=== PATIENT | female | born 1975 | race Caucasian/White ===

== ENCOUNTER 2016-05-23 17:01 | Emergency (ER) | payer SELFPAY ==
[~2016-05-23] VITALS: Ht 157.5 cm; Wt 66.0 kg
[~2016-05-23 17:01] MED LIST: CIPR250T2 PO; FLUC150T PO; LOMO2.5T PO; PARO1CAP PO
[2016-05-23 17:05] VITALS: BP 132/84; PULSE 84; RESP 18; TEMP 97.8; O2SAT 97
[2016-05-23] MEDS ORDERED: ONDANSETRON HCL 4 MG/2 ML VIAL IVP ONE (17:30)
[2016-05-23] MEDS ORDERED: SODIUM CHLOR 0.9% 1000 ML INJ 1,000 ML IV SCH (17:30)
[2016-05-23] MEDS ORDERED: SODIUM CHLORIDE 0.9% FLUSH 5 ML FLUSH IVF PRN (17:30)
[2016-05-23] MEDS ORDERED: SODIUM CHLOR 0.9% 1000 ML INJ 1,000 ML IV ONE (17:30)
--- NOTE | 2016-05-23 17:30 | PD ---
HPI Chief Complaint: GI Complaint Time Seen by Provider: 17:11 Travel History International Travel<30 days: No Contact w/Intl Traveler<30days: No Traveled to known affect area: No History of Present Illness HPI 40-year-old female came to the emergency room with history of vomiting and diarrhea that has been going on for past couple days. She feels quite dehydrated and that's why she came to the emergency room. He was at work today when she suddenly started getting palpitations and had to sit down. In the triage she started getting carpopedal spasms. Patient has history of rectal cancer but she is in remission. She says she frequently gets diarrhea. Vital signs were stable otherwise. [facility] Past Medical History Narrative Medical List of her past medical history is reviewed from the nursing note. Anemia: Yes Arthritis: Yes Asthma: Yes (seasonal asthma) Autoimmune Disease: Yes Blood Disorders: No Anxiety: Yes Depression: Yes Heart Rhythm Problems: No Cancer: Yes (colorectal, surgery 01/2015) Cardiovascular Problems: No High Cholesterol: No Chemotherapy: Yes (SEPTEMBER 2015) Chest Pain: No Congestive Heart Failure: No COPD: No Cerebrovascular Accident: Yes (TIA) Diabetes: No Diminished Hearing: No Endocrine: No Gastrointestinal Disorders: Yes (DIARRHEA, BLOOD IN STOOLS) Genetic Disorder: No Genitourinary: Yes (had "bladder stretched" when she was younger) Headaches: Yes (HEMIPLEGIA /MIGRANE) Hepatitis: Yes (HX HEPATITIS FROM ASPIRIN) Hiatal Hernia: No Hypertension: Yes (hx of, not currently on medications for HTN) Immune Disorder: Yes (RA) Implanted Vascular Access Dvce: No Musculoskeletal: Yes (Rheumatoid arthritis) Neurologic: Yes (TIA 2013) Parkinson's Disease: Yes Psychiatric: Yes Reproductive: No Respiratory: Yes (seasonal asthma) Immunizations Current: Yes Migraines: Yes Radiation Therapy: Yes (RECTAL CANCER) Sleep Apnea: No Thyroid Disease: No Menopausal: Yes : 2 Para: 1 Miscarriage: 1 : 0 Ectopic : Yes Ovarian Cysts: Yes Tubal Ligation: Yes Past Surgical History Abdominal Surgery: Yes (colon resection 01/2015) AICD: No Cardiac Surgery: No Cholecystectomy: Yes Ear Surgery: No Endocrine Surgery: No Eye Surgery: No Genitourinary Surgery: No Gynecologic Surgery: Yes (cyst removal right ovary) Joint Replacement: No Neurologic Surgery: No Oral Surgery: No Pacemaker: No Thoracic Surgery: No Other Surgery: Yes (TUMOR REMOVED LEFT FOOT) Social History Alcohol Use: No Tobacco Use: No Substance Use: No Allergies-Medications (Allergen,Severity, Reaction): Coded Allergies: Penicillin (Verified Allergy, Severe, ANAPHALXIS, 05/23/16) Septra (Verified Allergy, Severe, ITCHING, SWELLING LIPS & TONGUE, 05/23/16 ) Aspirin (Verified Adverse Reaction, Severe, SILICITIC HEPATITIS, 05/23/16) Codeine (Verified Adverse Reaction, Severe, NAUSEA, 05/23/16) Reglan (Verified Adverse Reaction, Severe, LOCKED JAW, 05/23/16) Compazine (Verified Adverse Reaction, Intermediate, 05/23/16) PT FEELS HEAVY AND HER SKIN IS CRAWLING Comments List of her allergies reviewed from the nursing note. Reported Meds & Prescriptions Reported Meds & Active Scripts Active Zofran Odt (Ondansetron Odt) 4 Mg Tab 4 Mg SL Q8HR PRN Reported Acyclovir 200 Mg Cap 200 Mg PO DAILY Lomotil (Diphenoxylate-Atropine) 2.5-0.025 Mg Tab 1 Tab PO TIDAC PRN Brisdelle (Paroxetine Mesylate) 7.5 Mg Cap 1 Tab PO HS Narrative Medication List of her home medications reviewed from the nursing note. Review of Systems Except as stated in HPI: all other systems reviewed are Neg Physical Exam Narrative GENERAL: Awake, alert, anxious, bilateral carpopedal spasms improving SKIN: Warm and dry. HEAD: Atraumatic. Normocephalic. EYES: Pupils equal and round. No scleral icterus. No injection or drainage. ENT: No nasal bleeding or discharge. Dry mucous membrane. NECK: Trachea midline. No JVD. CARDIOVASCULAR: Regular rate and rhythm. No murmur appreciated. RESPIRATORY: No accessory muscle use. Clear to auscultation. Breath sounds equal bilaterally. GASTROINTESTINAL: Abdomen soft, non-tender, nondistended. Hepatic and splenic margins not palpable. MUSCULOSKELETAL: No obvious deformities. No clubbing. No cyanosis. No edema. NEUROLOGICAL: Awake and alert. No obvious cranial nerve deficits. Motor grossly within normal limits. Normal speech. PSYCHIATRIC: Appropriate mood and affect; insight and judgment normal. Data Data Last Documented VS Vital Signs Date Time Temp Pulse Resp B/P Pulse Ox O2 Delivery O2 Flow Rate FiO2 05/23/16 20:14 74 16 127/72 99 05/23/16 19:15 Room Air 05/23/16 17:05 97.8 Orders Complete Blood Count With Diff (05/23/16 17:30) Comprehensive Metabolic Panel (05/23/16 17:30) Iv Access Insert/Monitor (05/23/16 17:30) Ecg Monitoring (05/23/16 17:30) Oximetry (05/23/16 17:30) Ondansetron Inj (Zofran Inj) (05/23/16 17:30) Sodium Chlor 0.9% 1000 Ml Inj (Ns 1000 M (05/23/16 17:30) Sodium Chloride 0.9% Flush (Ns Flush) (05/23/16 17:30) Magnesium (Mg) (05/23/16 17:30) Sodium Chlor 0.9% 1000 Ml Inj (Ns 1000 M (05/23/16 17:30) Alprazolam (Xanax) (05/23/16 18:30) Labs Laboratory Tests Test 05/23/16 17:20 White Blood Count 9.7 TH/MM3 Red Blood Count 4.68 MIL/MM3 Hemoglobin 13.4 GM/DL Hematocrit 39.6 % Mean Corpuscular Volume 84.6 FL Mean Corpuscular Hemoglobin 28.7 PG Mean Corpuscular Hemoglobin 33.9 % Concent Red Cell Distribution Width 13.4 % Platelet Count 362 TH/MM3 Mean Platelet Volume 7.4 FL Neutrophils (%) (Auto) 67.7 % Lymphocytes (%) (Auto) 20.0 % Monocytes (%) (Auto) 6.7 % Eosinophils (%) (Auto) 1.8 % Basophils (%) (Auto) 3.8 % Neutrophils # (Auto) 6.5 TH/MM3 Lymphocytes # (Auto) 1.9 TH/MM3 Monocytes # (Auto) 0.7 TH/MM3 Eosinophils # (Auto) 0.2 TH/MM3 Basophils # (Auto) 0.4 TH/MM3 CBC Comment DIFF FINAL Differential Comment Sodium Level 140 MEQ/L Potassium Level 3.8 MEQ/L Chloride Level 103 MEQ/L Carbon Dioxide Level 19.5 MEQ/L Anion Gap 18 MEQ/L Blood Urea Nitrogen 10 MG/DL Creatinine 0.87 MG/DL Estimat Glomerular Filtration 73 ML/MIN Rate Random Glucose 138 MG/DL Calcium Level 9.2 MG/DL Magnesium Level 2.0 MG/DL Total Bilirubin 0.5 MG/DL Aspartate Amino Transf 30 U/L (AST/SGOT) Alanine Aminotransferase 27 U/L (ALT/SGPT) Alkaline Phosphatase 127 U/L Total Protein 7.9 GM/DL Albumin 4.0 GM/DL MDM Medical Decision Making Medical Screen Exam Complete: Yes Emergency Medical Condition: Yes Medical Record Reviewed: Yes Differential Diagnosis Acute gastroenteritis, dehydration, electrolyte abnormalities Narrative Course 6:32 PM blood test results of back and within normal limits with a bicarbonate which is little low and could be from the dehydration. I have ordered 2 L of IV fluid. The nurse came to me just now and said that patient is complaining now of lower extremity weakness. She appears extremely anxious and I have ordered 0.5 mg of Xanax for her. I will reassess her in a bit but in my opinion she could be discharged home. 7:14 PM patient was reassessed and she says she feels better. She is finishing her second liter of IV fluid bolus. She will be discharged after that. Procedures EKG Prior to Arrival: No Diagnosis Primary Impression: Gastroenteritis Additional Impression: Dehydration Referrals: Primary Care Physician 2 days Additional Instructions: Please return to the ER if the condition worsens or any other new concerns. Otherwise follow-up with her primary care. Take the medication as per the prescription direction. Med/Other Pt SpecificInfo: Prescription(s) given Scripts Ondansetron Odt (Zofran Odt)4 Mg Tab4 Mg SL Q8HR PRN (Nausea/Vomiting) #10 TAB Ref 0 Prov:Sylvia Ramos MD 05/23/16 Disposition: 01 DISCHARGE HOME Condition: Stable Sylvia Ramos MD May 23, 2016 17:30
[2016-05-23] MEDS ORDERED: ACYC200C66 PO (17:33)
[2016-05-23 17:50] LABS: AUTOMATED NEUTROPHIL # 6.5 TH/MM3 (1.8-7.7); BASOPHIL # 0.4 TH/MM3 (0-0.2); BASOPHIL % 3.8 % (0.0-2.0); EOSINOPHIL # 0.2 TH/MM3 (0-0.4); EOSINOPHIL % 1.8 % (0.0-4.0); HEMATOCRIT 39.6 % (35.0-46.0); LYMPHOCYTE # 1.9 TH/MM3 (1.0-4.8); MEAN CELL VOLUME 84.6 FL (80.0-100.0); MEAN CORPUSCULAR HEMOGLOBIN 28.7 PG (27.0-34.0); MEAN CORPUSCULAR HGB CONC 33.9 % (32.0-36.0); MONO % 6.7 % (0.0-8.0); NEUT % 67.7 % (16.0-70.0); PLATELET COUNT 362 TH/MM3 (150-450); RED BLOOD COUNT 4.68 MIL/MM3 (4.00-5.30); RED CELL DISTRIBUTION WIDTH 13.4 % (11.6-17.2); WHITE BLOOD COUNT 9.7 TH/MM3 (4.0-11.0)
[2016-05-23 17:52] LABS: HEMO FLAGS DIFF FINAL
[2016-05-23 17:53] LABS: CHLORIDE 103 MEQ/L (98-107); POTASSIUM 3.8 MEQ/L (3.5-5.1); SODIUM (NA) 140 MEQ/L (136-145)
[2016-05-23 17:57] LABS: ANION GAP 18 MEQ/L (5-15); BICARBONATE 19.5 MEQ/L (21.0-32.0); BLOOD UREA NITROGEN 10 MG/DL (7-18)
[2016-05-23 18:00] LABS: ALT (GPT) 27 U/L (10-53); AST (GOT) 30 U/L (15-37); GLOMERULAR FILTRATION RATE 73 ML/MIN (>89)
[2016-05-23 18:02] LABS: TOTAL BILIRUBIN ADULT 0.5 MG/DL (0.2-1.0)
[2016-05-23 18:03] LABS: ALKALINE PHOSPHATASE 127 U/L (45-117)
[2016-05-23] MEDS ORDERED: ALPRAZolam 0.5 MG TAB PO ONE (18:30)
[2016-05-23 18:46] VITALS: BP 118/80; PULSE 90; RESP 20; O2SAT 97
[2016-05-23 18:47] VITALS: O2SAT 98
[2016-05-23 19:15] VITALS: BP 115/72; PULSE 78; RESP 16; O2SAT 99
[2016-05-23] MEDS ORDERED: ZOFR4TAB3 SL (19:15)
[2016-05-23 20:14] VITALS: BP 127/72
== END 2016-05-23 20:18 | disposition home or self-care (01) ==
LOC: PHED 17:01
DX: K52.9 Noninfective gastroenteritis and colitis, unspecified (principal); E86.0 Dehydration; Z85.048 Personal history of other malignant neoplasm of rectum, rectosigmoid junction, and anus
CPT/HCPCS: 80053; 83735; 85025; 96361; 96374; 99284; J2405; J7030

== ENCOUNTER 2016-06-28 11:14 | Emergency (ER) | payer SELFPAY ==
[~2016-06-28] VITALS: Ht 160 cm; Wt 66.0 kg
[~2016-06-28 11:14] MED LIST changes: +ACYC200C66 PO; -CIPR250T2 PO; -FLUC150T PO; +ZOFR4TAB3 SL
[2016-06-28 11:18] VITALS: BP 112/72; PULSE 121; RESP 18; TEMP 99.9; O2SAT 98
[2016-06-28 11:43] VITALS: O2SAT 98
--- NOTE | 2016-06-28 11:43 | PD ---
HPI Chief Complaint: Abdominal Pain Time Seen by Provider: 11:32 Travel History International Travel<30 days: No Contact w/Intl Traveler<30days: Yes Name of Country Traveled to: [place], [place] Traveled to known affect area: No History of Present Illness HPI The patient was seen and examined in the presence of the nurse. She complains of abdominal pain. Location is right lower quadrant. Duration is 24 hours. Severity is moderate. She also has nausea and vomiting. Patient has chronic diarrhea as she has history of rectal cancer and has had partial colectomy. No alleviating factors. She denies respiratory symptoms. Denies urinary symptoms. sHe reports subjective fever PFSH Past Medical History Anemia: Yes Arthritis: Yes Asthma: Yes (seasonal asthma) Autoimmune Disease: Yes Blood Disorders: No Anxiety: Yes Depression: Yes Heart Rhythm Problems: No Cancer: Yes (colorectal, surgery 01/2015) Cardiovascular Problems: No Chemotherapy: Yes (08/26) Chest Pain: No Congestive Heart Failure: No COPD: No Cerebrovascular Accident: Yes (TIA 2012) Diabetes: No Diminished Hearing: No Endocrine: No Gastrointestinal Disorders: Yes (DIARRHEA, BLOOD IN STOOLS) Genetic Disorder: No Genitourinary: Yes (had "bladder stretched" when she was younger) Headaches: Yes (HEMIPLEGIA /MIGRANE) Hepatitis: Yes (HX HEPATITIS FROM ASPIRIN) Hiatal Hernia: No Hypertension: Yes (hx of, not currently on medications for HTN) Immune Disorder: Yes (RA) Implanted Vascular Access Dvce: No Musculoskeletal: Yes (Rheumatoid arthritis) Neurologic: Yes (TIA 2013) Parkinson's Disease: Yes Psychiatric: Yes Reproductive: No Respiratory: Yes (seasonal asthma) Immunizations Current: Yes Migraines: Yes Radiation Therapy: Yes (RECTAL CANCER) Sleep Apnea: No Thyroid Disease: No Tetanus Vaccination: > 5 Years Influenza Vaccination: No ?: Not LMP: 10/2014 - CHEMO INDUCED MENOPAUSE Menopausal: Yes : 2 Para: 1 Miscarriage: 1 : 0 Ectopic : Yes Ovarian Cysts: Yes Tubal Ligation: Yes Past Surgical History Abdominal Surgery: Yes (colon resection 01/2015) AICD: No Cholecystectomy: Yes Gynecologic Surgery: Yes (cyst removal right ovary, [id number] SALPINGECTOMY) Joint Replacement: No Pacemaker: No Other Surgery: Yes (TUMOR REMOVED LEFT FOOT) Social History Alcohol Use: No Tobacco Use: No Substance Use: No Allergies-Medications (Allergen,Severity, Reaction): Coded Allergies: Penicillin (Verified Allergy, Severe, ANAPHALXIS, 06/28/16) Septra (Verified Allergy, Severe, ITCHING, SWELLING LIPS & TONGUE, 06/28/16 ) Aspirin (Verified Adverse Reaction, Severe, SILICITIC HEPATITIS, 06/28/16) Codeine (Verified Adverse Reaction, Severe, NAUSEA, 06/28/16) Reglan (Verified Adverse Reaction, Severe, LOCKED JAW, 06/28/16) Compazine (Verified Adverse Reaction, Intermediate, 06/28/16) PT FEELS HEAVY AND HER SKIN IS CRAWLING Reported Meds & Prescriptions Reported Meds & Active Scripts Active Reported Acyclovir 200 Mg Cap 200 Mg PO DAILY Lomotil (Diphenoxylate-Atropine) 2.5-0.025 Mg Tab 1 Tab PO TIDAC PRN Review of Systems General / Constitutional: Positive: Fever Eyes: No: Visual changes HENT: No: Headaches Cardiovascular: No: Chest Pain or Discomfort Respiratory: No: Shortness of Breath Gastrointestinal: Positive: Nausea, Vomiting, Abdominal Pain Genitourinary: No: Dysuria Musculoskeletal: No: Pain Skin: No Rash Neurologic: No: Weakness Psychiatric: No: Depression Endocrine: No: Polydipsia Hematologic/Lymphatic: No: Easy Bruising Physical Exam Narrative GENERAL: Well-nourished, well-developed patient with right lower quadrant pain. SKIN: Warm and dry. HEAD: Atraumatic. Normocephalic. EYES: Pupils equal and round. No scleral icterus. No injection or drainage. ENT: No nasal bleeding or discharge. Mucous membranes pink and moist. NECK: Trachea midline. No JVD. CARDIOVASCULAR: Regular rate and rhythm. No murmur appreciated. RESPIRATORY: No accessory muscle use. Clear to auscultation. Breath sounds equal bilaterally. GASTROINTESTINAL: Abdomen soft, is tender in both lower quadrants but more so on the right side. No rebound or guarding. Well-healed surgical scar. Hepatic and splenic margins not palpable. MUSCULOSKELETAL: No obvious deformities. No clubbing. No cyanosis. No edema. NEUROLOGICAL: Awake and alert. No obvious cranial nerve deficits. Motor grossly within normal limits. Normal speech. PSYCHIATRIC: Appropriate mood and affect; insight and judgment normal. Data Data Last Documented VS Vital Signs Date Time Temp Pulse Resp B/P Pulse Ox O2 Delivery O2 Flow Rate FiO2 06/28/16 13:40 94 16 130/77 100 Room Air 06/28/16 11:18 99.9 Orders Urinalysis - C+S If Indicated (06/28/16 11:18) Ed Urine Pregnancytest Poc (06/28/16 11:18) Basic Metabolic Panel (Bmp) (06/28/16 11:37) Complete Blood Count With Diff (06/28/16 11:37) Prothrombin Time / Inr (Pt) (06/28/16 11:37) Act Partial Throm Time (Ptt) (06/28/16 11:37) Ct Abd/Pel W Iv Contrast(Rout) (06/28/16 11:37) Iv Access Insert/Monitor (06/28/16 11:37) Ecg Monitoring (06/28/16 11:37) Oximetry (06/28/16 11:37) Sodium Chloride 0.9% Flush (Ns Flush) (06/28/16 11:45) Urine Culture (06/28/16 11:38) Iohexol 350 Inj (Omnipaque 350 Inj) (06/28/16 13:36) Ondansetron Inj (Zofran Inj) (06/28/16 14:30) Labs Laboratory Tests Test 06/28/16 06/28/16 11:38 11:52 Urine Collection Type CLEAN CATCH Urine Color YELLOW Urine Turbidity SLIGHT Urine pH 7.5 Urine Specific Shubert 1.021 Urine Protein TRACE mg/dL Urine Glucose (UA) NEG mg/dL Urine Ketones NEG mg/dL Urine Occult Blood TRACE Urine Nitrite NEG Urine Bilirubin NEG Urine Leukocyte Esterase SMALL Urine RBC 4-9 /hpf Urine WBC 9-14 /hpf Urine Squamous Epithelial > 8 /hpf Cells Urine Bacteria FEW /hpf Microscopic Urinalysis Comment CULTURE INDICATED Urine Collection Time 11:38 White Blood Count 14.4 TH/MM3 Red Blood Count 4.68 MIL/MM3 Hemoglobin 13.4 GM/DL Hematocrit 39.3 % Mean Corpuscular Volume 83.9 FL Mean Corpuscular Hemoglobin 28.6 PG Mean Corpuscular Hemoglobin 34.1 % Concent Red Cell Distribution Width 13.4 % Platelet Count 279 TH/MM3 Mean Platelet Volume 6.7 FL Neutrophils (%) (Auto) 87.9 % Lymphocytes (%) (Auto) 5.5 % Monocytes (%) (Auto) 4.5 % Eosinophils (%) (Auto) 0.4 % Basophils (%) (Auto) 1.7 % Neutrophils # (Auto) 12.7 TH/MM3 Lymphocytes # (Auto) 0.8 TH/MM3 Monocytes # (Auto) 0.6 TH/MM3 Eosinophils # (Auto) 0.1 TH/MM3 Basophils # (Auto) 0.2 TH/MM3 CBC Comment DIFF FINAL Differential Comment Prothrombin Time 10.9 SEC Prothromb Time International 1.0 RATIO Ratio Activated Partial 28.1 SEC Thromboplast Time Sodium Level 139 MEQ/L Potassium Level 4.0 MEQ/L Chloride Level 103 MEQ/L Carbon Dioxide Level 28.4 MEQ/L Anion Gap 8 MEQ/L Blood Urea Nitrogen 12 MG/DL Creatinine 0.90 MG/DL Estimat Glomerular Filtration 70 ML/MIN Rate Random Glucose 123 MG/DL Calcium Level 8.6 MG/DL [facility] Medical Decision Making Medical Screen Exam Complete: Yes Emergency Medical Condition: Yes Medical Record Reviewed: Yes Differential Diagnosis Appendicitis, colitis, ileus Narrative Course I have reviewed the patient's electronic medical record. IV placed CBC shows minimal nonspecific leukocytosis Metabolic profile is normal Coagulation studies are normal Urinalysis shows a few white cells but also an equal amount squamaus cell epithelial cells. It will be cultured but treatment will be held pending culture Urine is negative CT of abdomen and pelvis shows no emergent findings. It shows chronic stable postsurgical changes and mild constipation Gave her dose of IV Zofran Prescriptions written for pain and nausea medicine. No emergent intervention process found for hospitalization. I don't see any definite indication for antibiotics at this time Recommend primary care follow-up and return if worse Diagnosis Primary Impression: Abdominal pain, right lower quadrant Additional Impression: Nausea & vomiting Qualified Code: R11.2 - Non-intractable vomiting with nausea, unspecified vomiting type Additional Instructions: The patient was advised to follow up with their physician and return if they worsen. The patient was warned about potential sedation for the medications they will receive on prescription. Med/Other Pt SpecificInfo: Prescription(s) given Scripts Tramadol 50 Mg Tab50 Mg PO Q6H PRN (PAIN) #20 TAB Ref 0 Prov:Toni Liang MD 06/28/16 Ondansetron Odt (Zofran Odt)4 Mg Tab4 Mg SL Q6HR PRN (Nausea/Vomiting) #12 TAB Ref 0 Prov:Toni Liang MD 06/28/16 Disposition: 01 DISCHARGE HOME Condition: Stable Toni Liang MD Jun 28, 2016 11:43
[2016-06-28] MEDS ORDERED: SODIUM CHLORIDE 0.9% FLUSH 5 ML FLUSH IVF PRN (11:45)
[2016-06-28 11:49] LABS: BLOOD, URINE TRACE (NEG); GLUCOSE,URINE NEG (NEG); KETONE, URINE NEG (NEG); NITRITE,URINE NEG (NEG); PH, URINE 7.5 (5.0-8.5)
[2016-06-28 11:55] LABS: BACTERIA, URINE FEW /hpf; COMMENT (UR) CULTURE INDICATED; CULTURE IF INDICATED CULTURE INDICATED; METHOD OF COLLECTION CLEAN CATCH; SQUAMOUS EPITHELIAL CELL URINE > 8 /hpf (0-5); URINE COLOR YELLOW (YELLW/STRAW)
[2016-06-28 11:58] LABS: AUTOMATED NEUTROPHIL # 12.7 TH/MM3 (1.8-7.7); BASOPHIL # 0.2 TH/MM3 (0-0.2); BASOPHIL % 1.7 % (0.0-2.0); EOSINOPHIL # 0.1 TH/MM3 (0-0.4); EOSINOPHIL % 0.4 % (0.0-4.0); HEMATOCRIT 39.3 % (35.0-46.0); LYMPH % 5.5 % (9.0-44.0); LYMPHOCYTE # 0.8 TH/MM3 (1.0-4.8); MEAN CELL VOLUME 83.9 FL (80.0-100.0); MEAN CORPUSCULAR HEMOGLOBIN 28.6 PG (27.0-34.0); MEAN CORPUSCULAR HGB CONC 34.1 % (32.0-36.0); MONO % 4.5 % (0.0-8.0); NEUT % 87.9 % (16.0-70.0); PLATELET COUNT 279 TH/MM3 (150-450); RED BLOOD COUNT 4.68 MIL/MM3 (4.00-5.30); RED CELL DISTRIBUTION WIDTH 13.4 % (11.6-17.2); WHITE BLOOD COUNT 14.4 TH/MM3 (4.0-11.0)
[2016-06-28 11:59] LABS: HEMO FLAGS DIFF FINAL
[2016-06-28 12:09] LABS: BICARBONATE 28.4 MEQ/L (21.0-32.0)
[2016-06-28 12:10] LABS: APTT (PATIENT) 28.1 SEC (24.3-30.1); PROTHROMBIN TIME - PATIENT 10.9 SEC (9.8-11.6)
[2016-06-28 12:17] VITALS: BP 110/66; PULSE 100; RESP 16; O2SAT 100
[2016-06-28 12:55] VITALS: BP 133/69; PULSE 88; RESP 16; O2SAT 100
[2016-06-28] MEDS ORDERED: IOHEXOL 350 MG/ML 10 ML VIAL (for RAD DIAG) IV ONE (13:36)
[2016-06-28 13:40] VITALS: BP 130/77; PULSE 94; RESP 16; O2SAT 100
--- NOTE | 2016-06-28 13:53 | RADHPO ---
EXAM DATE/TIME: 06/28/2016 13:29 [facility] COMPARISON: CT ABDOMEN & PELVIS W CONTRAST, January 13, 2016, 2:09. INDICATIONS : Right lower quadrant pain. Nausea and vomiting. IV CONTRAST: 80 cc Omnipaque 350 (iohexol) IV ORAL CONTRAST: No oral contrast ingested. RADIATION DOSE: 7.56 CTDIvol (mGy) MEDICAL HISTORY : Carcinoma, rectal. Renal calculi. Hypertension.Asthma. SURGICAL HISTORY : Cholecystectomy. Tubal ligation.Partial colectomy. ENCOUNTER: Initial ACUITY: 1 day PAIN SCALE: 8/10 LOCATION: Right lower quadrant TECHNIQUE: Volumetric scanning of the abdomen and pelvis was performed. Using automated exposure control and ad justment of the mA and/or kV according to patient size, radiation dose was kept as low as reasonably achievable to obtain optimal diagnostic quality images. FINDINGS: Comparison is January 2016. Lung bases are clear. No acute bony abnormalities. There is a history of rectal carcinoma with a distal anastomosis of the rectal region. There is stabl e presacral postoperative soft tissue prominence. There is some stranding in the pelvic fat which is similar to prior study. No new inflammatory changes are seen in the pelvis. There is mild constipatio n, especially in the cecal region. No acute findings in the visualized liver, spleen, adrenals, kidneys or pancreas. There is previous c holecystectomy. CONCLUSION: 1. No acute findings compared with January 2016. Colonic anastomosis in the rectal region with stab le presacral soft tissue swelling and fat stranding in the pelvis. 2. Constipation, especially in the cecal region. Previous cholecystectomy. Daniel Fairchild MD on June 28, 2016 at 13:43 Board Certified Radiologist. This report was verified electronically.
[2016-06-28] MEDS ORDERED: TRAM50TA PO (14:23)
[2016-06-28] MEDS ORDERED: ZOFR4TAB3 SL (14:23)
[2016-06-28] MEDS ORDERED: ONDANSETRON HCL 4 MG/2 ML VIAL IVP ONE (14:30)
== END 2016-06-28 14:53 | disposition home or self-care (01) ==
LOC: PHED 11:14
DX: R10.31 Right lower quadrant pain (principal); G20 Parkinson's disease; M06.9 Rheumatoid arthritis, unspecified
CPT/HCPCS: 74177; 80048; 81001; 84703; 85025; 85610; 85730; 87086; 96374; 99284; J2405; Q9967

== ENCOUNTER 2016-07-15 21:06 | Emergency (ER) | payer SELFPAY ==
[~2016-07-15] VITALS: Ht 157.5 cm; Wt 66.6 kg
[~2016-07-15 21:06] MED LIST changes: -PARO1CAP PO; +TRAM50TA PO
[2016-07-15 21:11] VITALS: BP 116/70; PULSE 110; RESP 16; TEMP 98.7; O2SAT 94
[2016-07-15 21:19] VITALS: BP 116/70; PULSE 110; RESP 18; TEMP 98.7; O2SAT 94
--- NOTE | 2016-07-15 21:31 | PD ---
HPI Chief Complaint: Headache Time Seen by Provider: 21:22 Travel History International Travel<30 days: No Contact w/Intl Traveler<30days: No Traveled to known affect area: No History of Present Illness HPI The patient is a 40-year-old female that complains of a gradual onset headache getting worse in the last 2 days. The headache is left parietal and she has associated photophobia and phonophobia. She is taking tramadol for this and is not working very well. She has had similar headaches in the past. She is not and she denies any fever. She has had a tubal ligation. She denies any focal neurologic change. She has been vomiting several times today and feels dehydrated. PFSH Past Medical History Anemia: Yes Arthritis: Yes Asthma: Yes (seasonal asthma) Autoimmune Disease: Yes Blood Disorders: No Anxiety: Yes Depression: Yes Heart Rhythm Problems: No Cancer: Yes (colorectal, surgery 01/2015) Cardiovascular Problems: No Chemotherapy: Yes Chest Pain: No Congestive Heart Failure: No COPD: No Cerebrovascular Accident: Yes Diabetes: No Diminished Hearing: No Endocrine: No Gastrointestinal Disorders: Yes (DIARRHEA, BLOOD IN STOOLS) Genetic Disorder: No Genitourinary: Yes (had "bladder stretched" when she was younger) Headaches: Yes (HEMIPLEGIA /MIGRANE) Hepatitis: Yes (HX HEPATITIS FROM ASPIRIN) Hiatal Hernia: No Hypertension: Yes (hx of, not currently on medications for HTN) Immune Disorder: Yes (RA) Implanted Vascular Access Dvce: No Musculoskeletal: Yes (Rheumatoid arthritis) Neurologic: Yes (TIA 2013) Parkinson's Disease: Yes Psychiatric: Yes Reproductive: No Respiratory: Yes (seasonal asthma) Immunizations Current: Yes Migraines: Yes Radiation Therapy: Yes (RECTAL CANCER) Sleep Apnea: No Thyroid Disease: No Tetanus Vaccination: Unknown Influenza Vaccination: No ?: Not LMP: MENOPAUSE Menopausal: Yes : 2 Para: 1 Miscarriage: 1 : 0 Ectopic : Yes Ovarian Cysts: Yes Tubal Ligation: Yes Past Surgical History Abdominal Surgery: Yes (colon resection 01/2015) AICD: No Cholecystectomy: Yes Gynecologic Surgery: Yes (cyst removal right ovary, [id number] SALPINGECTOMY) Joint Replacement: No Pacemaker: No Other Surgery: Yes (TUMOR REMOVED LEFT FOOT) Social History Alcohol Use: No Tobacco Use: No Substance Use: No Allergies-Medications (Allergen,Severity, Reaction): Coded Allergies: Penicillin (Verified Allergy, Severe, ANAPHALXIS, 07/15/16) Septra (Verified Allergy, Severe, ITCHING, SWELLING LIPS & TONGUE, 07/15/16) Aspirin (Verified Adverse Reaction, Severe, SILICITIC HEPATITIS, 07/15/16) Codeine (Verified Adverse Reaction, Severe, NAUSEA, 07/15/16) Reglan (Verified Adverse Reaction, Severe, LOCKED JAW, 07/15/16) Compazine (Verified Adverse Reaction, Intermediate, 07/15/16) PT FEELS HEAVY AND HER SKIN IS CRAWLING Reported Meds & Prescriptions Reported Meds & Active Scripts Active Tramadol (Tramadol HCl) 50 Mg Tab 50 Mg PO Q6H PRN Zofran Odt (Ondansetron Odt) 4 Mg Tab 4 Mg SL Q6HR PRN Reported Acyclovir 200 Mg Cap 200 Mg PO DAILY Lomotil (Diphenoxylate-Atropine) 2.5-0.025 Mg Tab 1 Tab PO TIDAC PRN Review of Systems Except as stated in HPI: all other systems reviewed are Neg Physical Exam Narrative GENERAL: The patient is alert, oriented 3 in moderate apparent distress with her headache. SKIN: Warm and dry. HEAD: Atraumatic. Normocephalic. EYES: Pupils equal and round. No scleral icterus. No injection or drainage. ENT: No nasal bleeding or discharge. Mucous membranes pink and moist. NECK: Trachea midline. No JVD. There is no meningismus and the patient can touch her chin to her chest without any hesitation. CARDIOVASCULAR: Regular rate and rhythm. No murmur appreciated. RESPIRATORY: No accessory muscle use. Clear to auscultation. Breath sounds equal bilaterally. GASTROINTESTINAL: Abdomen soft, non-tender, nondistended. Hepatic and splenic margins not palpable. No guarding or rebound is present. MUSCULOSKELETAL: No obvious deformities. No clubbing. No cyanosis. No edema. NEUROLOGICAL: Awake and alert. No obvious cranial nerve deficits. Motor grossly within normal limits. Normal speech. PSYCHIATRIC: Appropriate mood and affect; insight and judgment normal. Data Data Last Documented VS Vital Signs Date Time Temp Pulse Resp B/P Pulse Ox O2 Delivery O2 Flow Rate FiO2 07/15/16 22:18 86 18 119/81 97 Room Air 07/15/16 21:19 98.7 Orders Sumatriptan Inj (Imitrex Inj) (07/15/16 21:45) Complete Blood Count With Diff (07/15/16 21:32) Basic Metabolic Panel (Bmp) (07/15/16 21:32) Ecg Monitoring (07/15/16 21:32) Iv Access Insert/Monitor (07/15/16 21:32) Oximetry (07/15/16 21:32) Sodium Chloride 0.9% Flush (Ns Flush) (07/15/16 21:45) Ketorolac Inj (Toradol Inj) (07/15/16 21:45) Diphenhydramine Inj (Benadryl Inj) (07/15/16 21:45) Sodium Chlor 0.9% 1000 Ml Inj (Ns 1000 M (07/15/16 21:32) Ondansetron Inj (Zofran Inj) (07/15/16 21:45) Hydromorphone Pf Inj (Dilaudid Pf Inj) (07/15/16 21:45) MDM Medical Decision Making Medical Screen Exam Complete: Yes Emergency Medical Condition: Yes Medical Record Reviewed: Yes Differential Diagnosis Migraine headache, cluster headache, tension/migraine combination headache, tension headache, normal pressure hydrocephalusunlikely, subarachnoid hemorrhageextremely unlikely Narrative Course It is now 1019 and the patient feels much better. She was sleeping when I came into her room. The Imitrex did work for her headache. She states she has plenty of Zofran at home. I will write her Fioricet to see if this helps some of her milder headaches. Impression: Migraine headache. The patient's history plus the fact that Imitrex worked for her strongly suggest migraine. Diagnosis Primary Impression: Migraine headache Additional Instructions: Do not drink alcohol or drive on the Fioricet because it can make sleepy. The Fioricet as intended for the minor headaches, use early on with your headache. Follow-up with your primary care physician this week. Med/Other Pt SpecificInfo: Prescription(s) given Scripts [id number] (Fioricet)50-300-40 Mg Cap1 Cap PO Q4H PRN ( HEADACHE) #30 CAP Ref 0 Prov:Familia Romero MD 07/15/16 Disposition: 01 DISCHARGE HOME Condition: Stable Familia Romero MD Jul 15, 2016 21:31
[2016-07-15] MEDS ORDERED: SODIUM CHLOR 0.9% 1000 ML INJ 1,000 ML IV ONE (21:32)
[2016-07-15 21:37] VITALS: RESP 18; O2SAT 94
[2016-07-15] MEDS ORDERED: SUMAtriptan INJ 6 MG/0.5 ML VIAL SQ ONE (21:45)
[2016-07-15] MEDS ORDERED: SODIUM CHLORIDE 0.9% FLUSH 5 ML FLUSH IVF PRN (21:45)
[2016-07-15] MEDS ORDERED: diphenhydrAMINE HCL 50 MG/ML VIAL IVP ONE (21:45)
[2016-07-15] MEDS ORDERED: ONDANSETRON HCL 4 MG/2 ML VIAL IV ONE (21:45)
[2016-07-15] MEDS ORDERED: HYDROmorphone HCL PF 1 MG/ML VIAL IVP ONE (21:45)
[2016-07-15] MEDS ORDERED: KETOROLAC TROMETHAMINE 30 MG/ML (IVP) VIAL IVP ONE (21:45)
[2016-07-15 22:18] VITALS: BP 119/81; PULSE 86; RESP 18; O2SAT 97
[2016-07-15 22:20] LABS: AUTOMATED NEUTROPHIL # 7.4 TH/MM3 (1.8-7.7); BASOPHIL # 0.1 TH/MM3 (0-0.2); BASOPHIL % 1.2 % (0.0-2.0); EOSINOPHIL # 0.1 TH/MM3 (0-0.4); HEMATOCRIT 37.4 % (35.0-46.0); LYMPHOCYTE # 1.3 TH/MM3 (1.0-4.8); MEAN CELL VOLUME 84.4 FL (80.0-100.0); MEAN CORPUSCULAR HEMOGLOBIN 27.8 PG (27.0-34.0); MONO % 7.8 % (0.0-8.0); PLATELET COUNT 317 TH/MM3 (150-450); RED BLOOD COUNT 4.43 MIL/MM3 (4.00-5.30); RED CELL DISTRIBUTION WIDTH 13.3 % (11.6-17.2); WHITE BLOOD COUNT 9.7 TH/MM3 (4.0-11.0)
[2016-07-15] MEDS ORDERED: BUTA1CAP PO (22:21)
[2016-07-15 22:22] LABS: HEMO FLAGS DIFF FINAL
[2016-07-15 22:36] VITALS: RESP 18
[2016-07-15 22:37] LABS: POTASSIUM 3.5 MEQ/L (3.5-5.1)
[2016-07-15 22:40] LABS: BICARBONATE 27.1 MEQ/L (21.0-32.0)
[2016-07-15 23:35] VITALS: BP 108/67
[2016-11-09] MEDS ORDERED: VENL75CA44 PO (16:20)
[2016-11-09] MEDS ORDERED: ALBU0.08 NEB (16:23)
== END 2016-07-15 23:39 | disposition home or self-care (01) ==
LOC: PHED 21:06
DX: G43.909 Migraine, unspecified, not intractable, without status migrainosus (principal); H53.149 Visual discomfort, unspecified; I10 Essential (primary) hypertension; J45.909 Unspecified asthma, uncomplicated
CPT/HCPCS: 80048; 85025; 96361; 96372; 96374; 96375; 99283; J1170; J1200; J1885; J2405; J3030; J7030

== ENCOUNTER → 2016-10-30 | Outpatient (CLI) | payer OTHER ==
[~2016-10-30] MED LIST changes: +BUTA1CAP PO
== END ==
LOC: PLAB 11:12
PROVIDERS: ATTEND Family Medicine
DX: C18.9 Malignant neoplasm of colon, unspecified (principal); R63.4 Abnormal weight loss; K92.1 Melena
CPT/HCPCS: 84443

== ENCOUNTER → 2016-11-14 | Outpatient (CLI) | payer OTHER ==
[~2016-11-14] VITALS: Ht 160 cm; Wt 54.2 kg
[~2016-11-14] MED LIST changes: +ALBU0.08 NEB; +CHLORHEXIDINE GLUCONATE 2 % 1 PACK (2 CLOTHS) TOPICAL PRN; +DEXTROSE 5% IN WATE 1000ML INJ 1,000 ML IV SCH; +INSULIN HUMAN REGULAR 1,000 UNITS/10 ML VIAL SQ PRN; +LACTATED RINGER'S 1000 ML INJ 1,000 ML ONE; +LACTATED RINGER'S 1000 ML IV PRN; +METOPROLOL TARTRATE 25 MG TAB PO PRN; +POVIDONE IODINE 5% (ANTISEPSIS KIT) 4 APPLICATIONS EACH NARE PRN; +PROPOFOL 200 MG/20 ML AMP IV ONE; +SODIUM CHLORID 0.9% 500 ML IV PRN; -TRAM50TA PO; +VENL75CA44 PO
[2016-11-14 10:43] VITALS: BP 122/74; PULSE 82; RESP 16; TEMP 98.7; O2SAT 98
[2016-11-14 12:37] VITALS: TEMP 98.1
--- NOTE | 2016-11-14 12:38 | PD.HP.UP ---
H&P Update Note The Pre-Admit History and Physical Examination regarding the above named patient was reviewed (including, but not limited to, vital signs, heart, lungs, co-morbid conditions), and upon re-examination it is noted that: the patient's condition has not significantly changed since the last examination. Inder Ellis MD Nov 14, 2016 12:38
[2016-11-14 12:57] VITALS: BP 131/80; PULSE 86; RESP 18; O2SAT 98
--- NOTE | 2016-11-15 12:53 | MR ---
cc: JESSICA MARSHALL M.D., ANDREW H. M.D. DATE OF SURGERY November 14, 2016 PREOPERATIVE DIAGNOSES History of rectal cancer. Change in bowel habits. Colon cancer screening. PROCEDURE Colonoscopy to cecum. POSTOPERATIVE DIAGNOSES 1. Normal cecum to ileocecal valve. 2. Minor inflammatory changes of the colorectal anastomosis consistent with radiation proctitis. 3. History of rectal cancer. SURGEON Dr. Ellis PROCEDURE The patient was placed in the left lateral decubitus position. After adequate anesthesia sedation, rectal exam confirmed the emptiness of the rectal vault. The Olympus colonoscope was then introduced into the rectum, advanced easily under direct vision through the proximal colon until the cecum was identified. The ileocecal valve was normal. There were no vascular abnormalities noted in the cecum. The colonoscope was then gradually withdrawn visualizing mucosal surface throughout the distal colon. No polyps were seen. No luminal narrowing was noted in the region of the previous colorectal anastomosis. There was some minor granularity and inflammatory changes consistent with radiation effect. The anastomosis was somewhat narrowed but more than adequate in lumen size with bowel relaxation. The distal rectal vault appeared pretty unremarkable. The patient tolerated the procedure quite well and was brought to the recovery room in stable condition. MD MICHAEL Pineda/ELANA /10:34 PM /12:50 PM
== END ==
LOC: HEND 10:04
PROVIDERS: ATTEND Colon & Rectal Surgery
DX: R19.7 Diarrhea, unspecified (principal); Z85.048 Personal history of other malignant neoplasm of rectum, rectosigmoid junction, and anus; K62.7 Radiation proctitis
CPT/HCPCS: 00810; 45378; J7120

== ENCOUNTER 2016-11-24 20:44 | Emergency (ER) | payer OTHER ==
[~2016-11-24] VITALS: Ht 157.5 cm; Wt 56.0 kg
[~2016-11-24 20:44] MED LIST changes: -CHLORHEXIDINE GLUCONATE 2 % 1 PACK (2 CLOTHS) TOPICAL PRN; -DEXTROSE 5% IN WATE 1000ML INJ 1,000 ML IV SCH; -INSULIN HUMAN REGULAR 1,000 UNITS/10 ML VIAL SQ PRN; -LACTATED RINGER'S 1000 ML INJ 1,000 ML ONE; -LACTATED RINGER'S 1000 ML IV PRN; -METOPROLOL TARTRATE 25 MG TAB PO PRN; -POVIDONE IODINE 5% (ANTISEPSIS KIT) 4 APPLICATIONS EACH NARE PRN; -PROPOFOL 200 MG/20 ML AMP IV ONE; -SODIUM CHLORID 0.9% 500 ML IV PRN
[2016-11-24 20:48] VITALS: BP 119/86; TEMP 98.9
--- NOTE | 2016-11-24 21:10 | PD ---
HPI . Headache Chief Complaint: Headache Time Seen by Provider: 21:00 Travel History International Travel<30 days: No Contact w/Intl Traveler<30days: No Traveled to known affect area: No History of Present Illness HPI This patient presents with a chief complaint of headache. She describes a global headache which feels like a stabbing pain. It is exacerbated by light and sound. It is associated with nausea. It has been unrelieved by Tylenol and tramadol. She states that she has a prescription for tramadol because of headaches. Pain is currently rated 10/10. PFSH Past Medical History Anemia: Yes Arthritis: Yes Asthma: Yes (seasonal asthma) Autoimmune Disease: Yes Blood Disorders: No Anxiety: Yes Depression: Yes Heart Rhythm Problems: No Cancer: Yes (colorectal, surgery 01/2015) Cardiovascular Problems: No Chemotherapy: Yes Chest Pain: No Congestive Heart Failure: No COPD: No Cerebrovascular Accident: Yes Diabetes: No Diminished Hearing: No Endocrine: No Gastrointestinal Disorders: Yes (DIARRHEA, BLOOD IN STOOLS) Genetic Disorder: No Genitourinary: Yes (had "bladder stretched" when she was younger, herpes) Headaches: Yes (HEMIPLEGIA /MIGRANE) Hepatitis: Yes (HX HEPATITIS FROM ASPIRIN) Hiatal Hernia: No Hypertension: Yes (hx of, not currently on medications for HTN) Immune Disorder: Yes (RA) Implanted Vascular Access Dvce: No Musculoskeletal: Yes (Rheumatoid arthritis) Neurologic: Yes (TIA 2013, paraplegic migraines) Parkinson's Disease: Yes Psychiatric: Yes (depression) Reproductive: No Respiratory: Yes (seasonal asthma) Immunizations Current: Yes Migraines: Yes Radiation Therapy: Yes (RECTAL CANCER) Sleep Apnea: No Thyroid Disease: No LMP: , RECTAL CANCER NOVEMBER 2014 Menopausal: Yes : 2 Para: 1 Miscarriage: 1 : 0 Ectopic : Yes Ovarian Cysts: Yes Tubal Ligation: Yes Past Surgical History Abdominal Surgery: Yes (colon resection 01/2015, cholecystectomy) AICD: No Cardiac Surgery: No Cholecystectomy: Yes Ear Surgery: No Endocrine Surgery: No Eye Surgery: No Gynecologic Surgery: Yes (cyst removal right ovary, BILATERAL SALPINGECTOMY) Joint Replacement: No Oral Surgery: No Pacemaker: No Thoracic Surgery: No Other Surgery: Yes (TUMOR REMOVED LEFT FOOT) Social History Alcohol Use: No Tobacco Use: No Substance Use: No Allergies-Medications (Allergen,Severity, Reaction): Coded Allergies: Penicillin (Verified Allergy, Severe, ANAPHALXIS, 11/24/16) Septra (Verified Allergy, Severe, ITCHING, SWELLING LIPS & TONGUE, 11/24/16 ) Aspirin (Verified Adverse Reaction, Severe, SILICITIC HEPATITIS, 11/24/16) Codeine (Verified Adverse Reaction, Severe, NAUSEA, 11/24/16) Reglan (Verified Adverse Reaction, Severe, LOCKED JAW, 11/24/16) Compazine (Verified Adverse Reaction, Intermediate, 11/24/16) PT FEELS HEAVY AND HER SKIN IS CRAWLING Reported Meds & Prescriptions Reported Meds & Active Scripts Active Zofran Odt (Ondansetron Odt) 4 Mg Tab 4 Mg SL Q6HR PRN Reported Albuterol Neb (Albuterol Sulfate) 2.5 Mg/3 Ml Neb 2.5 Mg NEB TID NEB PRN Venlafaxine ER 24 HR (Venlafaxine HCl) 75 Mg Cap 75 Mg PO DAILY Acyclovir 200 Mg Cap 200 Mg PO DAILY Lomotil (Diphenoxylate-Atropine) 2.5-0.025 Mg Tab 1 Tab PO TIDAC PRN Review of Systems Except as stated in HPI: all other systems reviewed are Neg Eyes: Positive: Photophobia, No: Blurred Vision HENT: Positive: Headaches Gastrointestinal: Positive: Nausea Physical Exam Narrative GENERAL: Awake and alert and in no acute distress. SKIN: Warm and dry. HEAD: Atraumatic. Normocephalic. Positive scalp tenderness. EYES: Pupils equal and round. Extraocular movements are intact. NECK: Trachea midline. Neck is supple. CARDIOVASCULAR: Regular rate and rhythm. RESPIRATORY: No accessory muscle use. MUSCULOSKELETAL: No obvious deformities. No edema. NEUROLOGICAL: Awake and alert. No obvious cranial nerve deficits. Motor grossly within normal limits. Normal speech. Vvjmcd-[id number] exam is intact. PSYCHIATRIC: Appropriate mood and affect; insight and judgment normal. Data Data Last Documented VS Vital Signs Date Time Temp Pulse Resp B/P Pulse Ox O2 Delivery O2 Flow Rate FiO2 11/24/16 21:14 99 Room Air 11/24/16 20:48 98.9 100 14 119/86 Orders Haloperidol Inj (Haldol Inj) (11/24/16 21:15) Diphenhydramine Inj (Benadryl Inj) (11/24/16 21:15) MDM Medical Decision Making Medical Screen Exam Complete: Yes Emergency Medical Condition: Yes Medical Record Reviewed: Yes (this patient does have a history of headaches. She also has a history of colon cancer.) Differential Diagnosis Differential diagnosis of headache includes but is not limited to migraine, muscle contraction headache, brain tumor, brain bleed Narrative Course This patient presents with the chief complaint of headache. She reports allergies to Compazine, Reglan and codeine. Therefore, I have ordered Haldol and Benadryl. This patient is now sound sleep. She'll be discharged home. Diagnosis Primary Impression: Migraine headache Qualified Code: G43.909 - Migraine without status migrainosus, not intractable , unspecified migraine type Patient Instructions: Acute Headache (DC), General Instructions Disposition: 01 DISCHARGE HOME Condition: Stable Mary Seals MD Nov 24, 2016 21:09
[2016-11-24] MEDS ORDERED: diphenhydrAMINE HCL 50 MG/ML VIAL IM ONE (21:15)
[2016-11-24] MEDS ORDERED: HALOPERIDOL LACTATE 5 MG/ML AMP IM ONE (21:15)
[2016-11-24 22:19] VITALS: BP 147/72
== END 2016-11-24 22:22 | disposition home or self-care (01) ==
LOC: PHED 20:44
DX: G43.909 Migraine, unspecified, not intractable, without status migrainosus (principal)
CPT/HCPCS: 96372; 99284; J1200; J1630

== ENCOUNTER 2017-02-26 07:18 | Emergency (ER) | payer SELFPAY ==
[~2017-02-26] VITALS: Ht 160 cm; Wt 63.9 kg
[~2017-02-26 07:18] MED LIST changes: -BUTA1CAP PO
[2017-02-26 07:25] VITALS: BP 140/86; PULSE 100; RESP 20; TEMP 98.6; O2SAT 100
[2017-02-26] MEDS ORDERED: SODIUM CHLOR 0.9% 1000 ML INJ 1,000 ML IV ONE (07:38)
[2017-02-26 07:41] VITALS: O2SAT 100
--- NOTE | 2017-02-26 07:57 | PD ---
HPI Chief Complaint: Cardiac Complaint Time Seen by Provider: 07:38 Travel History International Travel<30 days: No Contact w/Intl Traveler<30days: No Traveled to known affect area: No History of Present Illness HPI 41-year-old female patient with history of migraine headaches, previous TIA, colon cancer status post full treatment with hemicolectomy and chemotherapy a year ago, presents to the ER today because she apparently was visiting her mother who is giving surgery this morning, started not feeling well, dizzy, room spinning, tingling on the left face, arm, and leg. She states that she is now having trouble lifting up her leg and arm, states it feels very heavy. She states that it feels similar to the last time she had a TIA except that at that time she could not speak as well. She states that she had some dizziness, with nausea and spinning last evening but it went away. She states that it started again this morning while she was visiting with her mom upstairs about half an hour prior to arrival. Modifying Factors: None Associated Signs & Symptoms: Nausea, dizziness, left-sided paresthesias, left- sided weakness Risk Factors: Previous TIA PFSH Past Medical History Anemia: Yes Arthritis: Yes Asthma: Yes (seasonal asthma) Autoimmune Disease: Yes Blood Disorders: No Anxiety: Yes Depression: Yes Heart Rhythm Problems: No Cancer: Yes (colorectal, surgery 01/2015) Cardiovascular Problems: No Chemotherapy: Yes Chest Pain: No Congestive Heart Failure: No COPD: No Cerebrovascular Accident: Yes Diabetes: No Diminished Hearing: No Endocrine: No Gastrointestinal Disorders: Yes Genetic Disorder: No Genitourinary: Yes (had "bladder stretched" when she was younger, herpes) Headaches: Yes (HEMIPLEGIA /MIGRANE) Hepatitis: Yes (HX HEPATITIS FROM ASPIRIN) Hiatal Hernia: No Hypertension: Yes (hx of, not currently on medications for HTN) Immune Disorder: Yes (RA) Implanted Vascular Access Dvce: No Musculoskeletal: Yes (Rheumatoid arthritis) Neurologic: Yes (TIA 2013, paraplegic migraines) Parkinson's Disease: Yes Psychiatric: Yes (depression) Reproductive: No Respiratory: Yes (seasonal asthma) Immunizations Current: Yes Migraines: Yes Radiation Therapy: Yes (RECTAL CANCER) Sleep Apnea: No Thyroid Disease: No Tetanus Vaccination: > 5 Years ?: Not Menopausal: Yes : 2 Para: 1 Miscarriage: 1 : 0 Ectopic : Yes Ovarian Cysts: Yes Tubal Ligation: Yes Past Surgical History Abdominal Surgery: Yes (colon resection 01/2015, cholecystectomy) AICD: No Cardiac Surgery: No Cholecystectomy: Yes Ear Surgery: No Endocrine Surgery: No Eye Surgery: No Gynecologic Surgery: Yes (cyst removal right ovary, BILATERAL SALPINGECTOMY) Joint Replacement: No Oral Surgery: No Pacemaker: No Thoracic Surgery: No Other Surgery: Yes (TUMOR REMOVED LEFT FOOT) Social History Alcohol Use: No Tobacco Use: No Substance Use: No Allergies-Medications (Allergen,Severity, Reaction): Coded Allergies: penicillin G (Unverified Allergy, Severe, ANAPHALXIS, 02/26/17) sulfamethoxazole (Unverified Allergy, Severe, ITCHING, SWELLING LIPS & TONGUE, 02/26/17) trimethoprim (Unverified Allergy, Severe, ITCHING, SWELLING LIPS & TONGUE , 02/26/17) aspirin (Unverified Adverse Reaction, Severe, SILICITIC HEPATITIS, ) codeine (Unverified Adverse Reaction, Severe, NAUSEA, 02/26/17) metoclopramide (Unverified Adverse Reaction, Severe, LOCKED JAW, 02/26/17) prochlorperazine (Unverified Adverse Reaction, Intermediate, 02/26/17) PT FEELS HEAVY AND HER SKIN IS CRAWLING Reported Meds & Prescriptions Reported Meds & Active Scripts Active No Active Prescriptions or Reported Medications Review of Systems Except as stated in HPI: all other systems reviewed are Neg Physical Exam Narrative GENERAL: Well-developed middle age white female patient currently in moderate distress. Awake and oriented 3. Appears fairly anxious. SKIN: Focused skin assessment warm/dry. HEAD: Atraumatic. Normocephalic. EYES: Pupils equal and round. No scleral icterus. No injection or drainage. ENT: No nasal bleeding or discharge. Mucous membranes pink and moist. NECK: Trachea midline. No JVD. CARDIOVASCULAR: Regular rate and rhythm. No murmur appreciated. RESPIRATORY: No accessory muscle use. Clear to auscultation. Breath sounds equal bilaterally. GASTROINTESTINAL: Abdomen soft, non-tender, nondistended. Hepatic and splenic margins not palpable. MUSCULOSKELETAL: No obvious deformities. No clubbing. No cyanosis. No edema. NEUROLOGICAL: Awake and alert. No obvious cranial nerve deficits. Left arm paresthesias and left leg paresthesias, left wrist drop, unable to lift the left leg off the bed. Stuttering speech. PSYCHIATRIC: Anxious mood and affect; insight and judgment normal. Data Data Last Documented VS Vital Signs Date Time Temp Pulse Resp B/P (MAP) Pulse Ox O2 Delivery O2 Flow Rate FiO2 02/26/17 07:41 Nasal Cannula 2.00 02/26/17 07:41 100 02/26/17 07:25 98.6 100 20 140/86 (104) Orders Orders Diet Npo (02/26/17 Breakfast) Activity Bed Rest (02/26/17 ) Electrocardiogram (02/26/17 ) I-Stat Creatinine (02/26/17 07:38) I-Stat Profile (02/26/17 07:38) Prothrombin Time / Inr (Pt) (02/26/17 07:38) Act Partial Throm Time (Ptt) (02/26/17 07:38) Complete Blood Count With Diff (02/26/17 07:38) Fibrinogen (02/26/17 07:38) Creatine Kinase (Cpk) (02/26/17 07:38) Troponin I (02/26/17 07:38) Ua Includes Microscopic (02/26/17 07:38) Drug Screen, Random Urine (02/26/17 07:38) Type And Screen (02/26/17 07:38) Ct Brain W/O Iv Contrast(Rout) (02/26/17 ) Consult Neurology (02/26/17 ) Blood Glucose (02/26/17 07:38) Ecg Monitoring (02/26/17 07:38) Neuro Checks Q2HX12,Q4H (02/26/17 07:38) Nursing Bedside Swallow Assess .ONCE (02/26/17 07:38) Iv Access Insert/Monitor (02/26/17 07:38) NPO (02/26/17 07:38) Oximetry (02/26/17 07:38) Oxygen Administration (02/26/17 07:38) Sodium Chlor 0.9% 1000 Ml Inj (Ns 1000 M (02/26/17 07:38) Resp Oxygen Corby C Titrat 1-4 L (02/26/17 07:38) Cath For Specimen (02/26/17 07:38) Beta Hcg (Quant/Titer) (02/26/17 07:38) Cta Brain W Iv Contrast W 3d (02/26/17 07:47) Cta Neck W Iv Contrast W 3d (02/26/17 07:47) Iodixanol 320 Inj (Rad Ct) (Visipaque 32 (02/26/17 08:07) Lorazepam Inj (Ativan Inj) (02/26/17 08:30) (Hub Use Only)Inp Phy Cons/Ref (02/26/17 ) CKMB (02/26/17 07:20) CKMB% (02/26/17 07:20) Labs Laboratory Tests Test 02/26/17 07:20 02/26/17 08:20 White Blood Count 6.7 TH/MM3 Red Blood Count 4.70 MIL/MM3 Hemoglobin 13.5 GM/DL Bedside Hemoglobin 13.9 G/DL Hematocrit 40.7 % Bedside Hematocrit 41.0 % Mean Corpuscular Volume 86.5 FL Mean Corpuscular Hemoglobin 28.7 PG Mean Corpuscular Hemoglobin Concent 33.2 % Red Cell Distribution Width 14.6 % Platelet Count 333 TH/MM3 Mean Platelet Volume 7.0 FL Neutrophils (%) (Auto) 62.1 % Lymphocytes (%) (Auto) 23.4 % Monocytes (%) (Auto) 9.6 % Eosinophils (%) (Auto) 2.9 % Basophils (%) (Auto) 2.0 % Neutrophils # (Auto) 4.1 TH/MM3 Lymphocytes # (Auto) 1.6 TH/MM3 Monocytes # (Auto) 0.6 TH/MM3 Eosinophils # (Auto) 0.2 TH/MM3 Basophils # (Auto) 0.1 TH/MM3 CBC Comment DIFF FINAL Differential Comment Prothrombin Time 10.3 SEC Prothromb Time International Ratio 0.9 RATIO Activated Partial Thromboplast Time 27.0 SEC Fibrinogen 321 mg/dL Bedside Sodium 140 MMOL/L Bedside Potassium 4.5 MMOL/L Bedside Chloride 105 MMOL/L Bedside Blood Urea Nitrogen 24 MG/DL Bedside Creatinine 0.9 MG/DL Bedside Glucose 94 MG/DL Total Creatine Kinase 850 U/L Creatine Kinase MB 5.5 NG/ML Creatine Kinase MB % 0.6 % Troponin I LESS THAN 0.02 NG/ML Human Chorionic Gonadotropin, Quant 2 MIU/ML Urine Color LIGHT-YELLOW Urine Turbidity CLEAR Urine pH 8.0 Urine Specific Harvey 1.012 Urine Protein NEG mg/dL Urine Glucose (UA) NEG mg/dL Urine Ketones NEG mg/dL Urine Occult Blood NEG Urine Nitrite NEG Urine Bilirubin NEG Urine Urobilinogen LESS THAN 2.0 MG/DL Urine Leukocyte Esterase SMALL Urine RBC 1 /hpf Urine WBC 2 /hpf Urine Squamous Epithelial Cells 1 /hpf Urine Opiates Screen NEG Urine Barbiturates Screen NEG Urine Amphetamines Screen NEG Urine Benzodiazepines Screen NEG Urine Cocaine Screen NEG Urine Cannabinoids Screen NEG MDM Medical Screen Exam Complete: Yes Emergency Medical Condition: Yes Medical Record Reviewed: Yes Differential Diagnosis TIA/CVA versus brain metastases versus anxiety attack versus atypical migraine versus orthostasis versus metabolic issues versus dysrhythmias Narrative Course CAT scans and CTA were unremarkable. Patient had been seen by , reviewed the patient's chart, patient's exam, and notes that she has long history of atypical migraine headaches, hemiplegic migraines, and notes that she is having very similar symptoms, feels that this is not likely a stroke but rather a hemiplegic migraine or basilar migraine. He recommends that if CT and CTA are negative, patient can be released with follow-up as an outpatient. Return for any new issues as needed. The plan has been discussed with the patient and and she states understanding. Stroke Alert NIHSS NIH Stroke Scale Result: 1 NIHSS Time Completed: 07:30 Thrombolytic Contraindications Contraindications Comment: Patient with previous symptoms, diagnosed with atypical migraine, seen by multiple neurologists in the past Diagnosis Diagnosis: Primary Impression: Hemiplegic migraine Scripts No Active Prescriptions or Reported Meds Disposition: 01 DISCHARGE HOME Condition: Stable Jerri Miller MD Feb 26, 2017 07:57
--- NOTE | 2017-02-26 07:58 | RADRPT ---
EXAM DATE/TIME: 02/26/2017 07:39 [facility] COMPARISON: CT BRAIN W/O CONTRAST, March 07, 2015, 9:26. INDICATIONS : Stroke alert, left side tingling. RADIATION DOSE: 56.35 CTDIvol (mGy) This report was called by Dr. Rodriguez to Dr. Miller at 0756 MEDICAL HISTORY : Non-responsive. SURGICAL HISTORY : Non-responsive. ENCOUNTER: Initial ACUITY: 1 day PAIN SCALE: Non-responsive LOCATION: cranial TECHNIQUE: Multiple contiguous axial images were obtained of the head. Using automated exposure control and adj ustment of the mA and/or kV according to patient size, radiation dose was kept as low as reasonably a chievable to obtain optimal diagnostic quality images. DICOM format image data is available electro nically for review and comparison. FINDINGS: CEREBRUM: The ventricles are normal for age. No evidence of midline shift, mass lesion, hemorrhage or acute in farction. No extra-axial fluid collections are seen. POSTERIOR FOSSA: The cerebellum and brainstem are intact. The 4th ventricle is midline. The cerebellopontine angle i s unremarkable. EXTRACRANIAL: The visualized portion of the orbits is intact. SKULL: The calvaria is intact. No evidence of skull fracture. CONCLUSION: Negative exam. No change from prior Omar Rodriguez MD on February 26, 2017 at 7:54 Board Certified Radiologist. This report was verified electronically.
[2017-02-26 08:07] LABS: AUTOMATED NEUTROPHIL # 4.1 TH/MM3 (1.8-7.7); BASOPHIL # 0.1 TH/MM3 (0-0.2); EOSINOPHIL # 0.2 TH/MM3 (0-0.4); EOSINOPHIL % 2.9 % (0.0-4.0); HEMATOCRIT 40.7 % (35.0-46.0); HEMO FLAGS DIFF FINAL; I-STAT POTASSIUM 4.5 MMOL/L (3.5-4.9); I-STAT SODIUM 140 MMOL/L (138-146); LYMPH % 23.4 % (9.0-44.0); LYMPHOCYTE # 1.6 TH/MM3 (1.0-4.8); MEAN CELL VOLUME 86.5 FL (80.0-100.0); MEAN CORPUSCULAR HEMOGLOBIN 28.7 PG (27.0-34.0); MEAN CORPUSCULAR HGB CONC 33.2 % (32.0-36.0); MONO % 9.6 % (0.0-8.0); NEUT % 62.1 % (16.0-70.0); PLATELET COUNT 333 TH/MM3 (150-450); RED CELL DISTRIBUTION WIDTH 14.6 % (11.6-17.2); WHITE BLOOD COUNT 6.7 TH/MM3 (4.0-11.0)
[2017-02-26] MEDS ORDERED: IODIXANOL 320 MG/ML 10 ML VIAL (for Rad CT) IVCONTRAST ONE (08:07)
[2017-02-26 08:15] LABS: INTERNATIONAL NORMALIZED RATIO 0.9 RATIO; PROTHROMBIN TIME - PATIENT 10.3 SEC (9.8-11.6)
[2017-02-26] MEDS ORDERED: LORazepam 2 MG/ML VIAL IV PUSH ONE (08:30)
[2017-02-26 08:31] LABS: BLOOD, URINE NEG (NEG); GLUCOSE,URINE NEG (NEG); KETONE, URINE NEG (NEG); NITRITE,URINE NEG (NEG); SQUAMOUS EPITHELIAL CELL URINE 1 /hpf (0-5); URINE COLOR LIGHT-YELLOW (YELLW/STRAW)
[2017-02-26 08:32] LABS: BETA HCG QUANT 2 MIU/ML (0-5); CREATINE KINASE 850 U/L (26-192)
--- NOTE | 2017-02-26 08:32 | PD.CONS ---
History of Present Illness Service Neurology Consult Requested By er Reason for Consult stroke alert Primary Care Physician Nimisha Zavaleta MD History of Present Illness 41 y/o f presents to er for dizziness. vertigo since yesterday that hasn't gone away. no change with head position. she drove herself here and then in the er began to cry and developed left sided weakness. she has had similar symptoms 2008,2013,2015. mri brain scan have been normal.mri /mra brain and carotids were negative. hyper coag panel was negative. trent nml. ct brain nml today. she c/o of photo/phonophobia. nausea, throbbing headache in the holocephalic. she admits to a high level of stress/anxiety. History Past Medical History Narrative Medical TIA : 2 Para: 1 Past Surgical History Surgical History: No Previous Surgery Social History Alcohol Use: Yes (occ) Tobacco Use: No Allergies-Medications (Allergen,Severity, Reaction): Coded Allergies: Penicillin (Verified Allergy, Severe, HIVES, 11/05/13) Septra (Verified Allergy, Intermediate, ITCHING, SWELLING LIPS & TONGUE, ) Aspirin (Verified Adverse Reaction, Severe, SILICITIC HEPATITIS, 11/05/13) Codeine (Verified Adverse Reaction, Severe, NAUSEA, 11/05/13) Reglan (Verified Adverse Reaction, Severe, LOCKED JAW, 11/05/13) Reported Meds & Prescriptions Reported Meds & Active Scripts Active Ultram (Tramadol HCl) 50 Mg Tab 50 Mg PO Q6 PRN FOR PAIN Reported Mucinex D (Pseudoephedrine-Guaifenesin) 1 Tab Tab 1 Tab PO DAILY Zovirax 200 Mg Cap (Acyclovir) 200 Mg Cap 200 Mg PO DAILY Review of Systems All other ROS: ROS reviewed as documented in chart Review of Systems All other ROS: ROS reviewed as documented in chart Past Family Social History Allergies: Coded Allergies: penicillin G (Unverified Allergy, Severe, ANAPHALXIS, 02/26/17) sulfamethoxazole (Unverified Allergy, Severe, ITCHING, SWELLING LIPS & TONGUE, 02/26/17) trimethoprim (Unverified Allergy, Severe, ITCHING, SWELLING LIPS & TONGUE , 02/26/17) aspirin (Unverified Adverse Reaction, Severe, SILICITIC HEPATITIS, ) codeine (Unverified Adverse Reaction, Severe, NAUSEA, 02/26/17) metoclopramide (Unverified Adverse Reaction, Severe, LOCKED JAW, 02/26/17) prochlorperazine (Unverified Adverse Reaction, Intermediate, 02/26/17) PT FEELS HEAVY AND HER SKIN IS CRAWLING Active Ordered Medications Current Medications Medications (Trade) Dose Ordered Sig/Josee Route Start Time Stop Time Status Last Admin Sodium Chloride 1,000 ml @ 70 mls/hr [id number] ONCE IV 02/26/17 07:38 02/26/17 21:55 Exam I&O / VS Vital Signs Date Time Temp Pulse Resp B/P (MAP) Pulse Ox O2 Delivery O2 Flow Rate FiO2 02/26/17 07:41 Nasal Cannula 2.00 02/26/17 07:41 100 02/26/17 07:25 98.6 100 20 140/86 (104) 100 General: Alert and Oriented, No acute distress Eye: PERRL, EOMI Cardiology: Normal rate Musculoskeletal: ROM Neurologic: Alert, Oriented Psychiatric: Cooperative Exam Comments ox 3, crying, discussing her mother going for surgery today, speech can become dysarthric during conversation and revert back to being normal. on eomi testing will not look to either side but will spontaneously and with distraction. when asked to lift her left arm unable to. but then lifts it and gestures with her hand appropriately. drop arm test, slowly moves left arm to her side with no facial contact. left leg proportional to pt effort sensation: states she can't feel pin but states "doc your hands are cold". no clonus, planter flexor Review/Management Diagnosis/Plan: (1) Conversion disorder ICD Codes: F44.9 - Conversion disorder Status: Acute Plan: inconsistent exam probable migraine with psychogenic weakness recs consider benzo pain control outpatient psychotherapy d/c planning from neuro (2) Migraine ICD Codes: G43.909 - Migraine Status: Acute (3) Anxiety ICD Codes: F41.9 - Anxiety disorder, unspecified Status: Acute Alfonso Jacob MD Feb 26, 2017 08:32
[2017-02-26 08:45] LABS: CKMB 5.5 NG/ML (0.5-3.6)
--- NOTE | 2017-02-26 08:52 | RADRPT ---
EXAM DATE/TIME: 02/26/2017 07:52 [facility] COMPARISON: CTA CAROTID ARTERIES W 3D RECON, November 05, 2013, 13:17. INDICATIONS : Stroke alert, left side tingling. IV CONTRAST: 75 cc Visipaque (iodixanol) IV ; Cumulative dose for multiple exams. RADIATION DOSE: 15.56 CTDIvol (mGy) ; Combined studies MEDICAL HISTORY : Non-responsive. SURGICAL HISTORY : None. ENCOUNTER: Initial ACUITY: 1 day PAIN SCALE: Non-responsive LOCATION: neck Elevated flow velocities and ICA/CCA ratios have been found to correlate with increased degrees of vessel stenosis, calculated as percentage of diameter relative to a normal segment of distal ICA/CCA. TECHNIQUE: Volumetric scanning was performed using a multirow detector CT scanner. The data was post processed with a variety of visualization algorithms including full-volume maximum intensity projection, multip lanar sliding thin-slab reformation, curved-planar reformation, and surface-rendering techniques. Us ing automated exposure control and adjustment of the mA and/or kV according to patient size, radiatio n dose was kept as low as reasonably achievable to obtain optimal diagnostic quality images. DICOM f ormat image data is available electronically for review and comparison. FINDINGS: AORTIC ARCH: There is a four-vessel origin of the great vessels from the aorta with an aberrant right subclavian a rtery.. No evidence of ostial narrowing. RIGHT CAROTID: The common carotid artery is intact. The carotid bulb has a normal configuration without ulceration o r narrowing. The internal carotid artery lumen is smooth without stenosis. The external carotid meri ry is intact. No significant change. LEFT CAROTID: The common carotid artery is intact. The carotid bulb has a normal configuration without ulceration or narrowing. The internal carotid artery lumen is smooth without stenosis. The external carotid ar gio is intact. No significant change. VERTEBRALS: The vertebral arteries have a symmetric diameter. No stenotic lesions are seen. CONCLUSION: 1. Stable and grossly unremarkable CT scan of the carotid arteries compared to the prior examination from 2013.. 2. Incidental finding of a aberrant right subclavian artery. Froilan Fulton MD on February 26, 2017 at 8:48 Board Certified Radiologist. This report was verified electronically.
--- NOTE | 2017-02-26 09:22 | RADRPT ---
EXAM DATE/TIME: 02/26/2017 07:49 [facility] COMPARISON: CTA BRAIN W 3D RECON, November 05, 2013, 13:17. INDICATIONS : Stroke alert, left side tingling. IV CONTRAST: 75 cc Visipaque (iodixanol) IV ; Cumulative dose for multiple exams. RADIATION DOSE: 15.56 CTDIvol (mGy) ; Combined studies MEDICAL HISTORY : Non-responsive. SURGICAL HISTORY : Non-responsive. ENCOUNTER: Initial ACUITY: 1 day PAIN SCALE: Non-responsive LOCATION: cranial TECHNIQUE: Volumetric scanning was performed using a multi-row detector CT scanner. The data was post processed with a variety of visualization algorithms including full volume maximum intensity projection, multi -planar sliding thin slab reformation, curved planar reformation, and surface rendering techniques. Using automated exposure control and adjustment of the mA and/or kV according to patient size, radiat ion dose was kept as low as reasonably achievable to obtain optimal diagnostic quality images. DICO M format image data is available electronically for review and comparison. FINDINGS: There is excellent visualization of the major intracranial arteries out to the second-order branch ve ssels. There is no evidence for aneurysm, vessel truncation or stenosis, and no evidence for vascula r malformation. CONCLUSION: 1. No evidence of occlusive vascular disease. 2. origin left posterior cerebral artery Adan Goldman MD on February 26, 2017 at 8:28 Board Certified Radiologist. This report was verified electronically.
--- NOTE | 2017-02-27 07:29 | EKG ---
Date Performed: 02/26/2017 Time Performed: 07:26:41 PTAGE: 41 years EKG: SINUS TACHYCARDIA ABNORMAL RHYTHM ECG Compared to the PREVIOUS TRACING heart rate is faster, otherwise no significant change PREVIOUS TRACIN11/03/14 DOCTOR: Bruno Leija Interpretating Date/Time 02/27/2017 07:28:01
== END 2017-02-26 11:12 | disposition home or self-care (01) ==
LOC: NEPC 07:18
DX: F44.9 Dissociative and conversion disorder, unspecified (principal); G43.909 Migraine, unspecified, not intractable, without status migrainosus; F41.9 Anxiety disorder, unspecified; R00.0 Tachycardia, unspecified; M06.9 Rheumatoid arthritis, unspecified; Z86.73 Personal history of transient ischemic attack (TIA), and cerebral infarction without residual deficits; Z85.038 Personal history of other malignant neoplasm of large intestine
CPT/HCPCS: 70450; 70496; 70498; 80307; 81001; 82435; 82550; 82552; 82565; 82947; 84132; 84295; 84484; 84520; 84702; 85025; 85384; 85610; 85730; 86850; 86900; 86901; 93005; 96361; 96374; 99285; J2060; J7030; Q9967

== ENCOUNTER 2017-04-14 09:47 | Emergency (ER) | payer SELFPAY ==
[2017-04-14 09:52] VITALS: BP 126/78; PULSE 81; RESP 16; TEMP 98.6; O2SAT 99
--- NOTE | 2017-04-14 10:00 | PD ---
HPI Chief Complaint: Headache Time Seen by Provider: 10:00 Travel History International Travel<30 days: No Contact w/Intl Traveler<30days: No Traveled to known affect area: No History of Present Illness HPI 41-year-old female came to the emergency room with history of headache that has been going on for past 4 days. Patient has history of migraines. However this headache is different because she's been getting these occasional shocklike sensation that comes from the back of her occipital area that radiates to the back of her left ear and left pentecostal. Patient does not have a neurologist. Vital signs were stable. Patient has had several imaging including MRI and CAT scan in the past in fact recently for headache and other neurologic issues and they have all been negative so far. No history of nausea vomiting. She does not appear to be in any significant distress currently. No associated photophobia or any other symptoms. Patient has been supposed to take her verapamil this morning which she did not for her headache. PFSH Past Medical History Narrative Medical List of her past medical, surgical, social and family history is reviewed from the nursing note. Anemia: Yes Arthritis: Yes Asthma: Yes (seasonal asthma) Autoimmune Disease: Yes Blood Disorders: No Anxiety: Yes Depression: Yes Heart Rhythm Problems: No Cancer: Yes (colorectal, surgery 01/2015) Cardiovascular Problems: No Chemotherapy: Yes Chest Pain: No Congestive Heart Failure: No COPD: No Cerebrovascular Accident: Yes Diabetes: No Diminished Hearing: No Endocrine: No Gastrointestinal Disorders: Yes Genetic Disorder: No Genitourinary: Yes (had "bladder stretched" when she was younger, herpes) Headaches: Yes (HEMIPLEGIA /MIGRANE) Hepatitis: Yes (HX HEPATITIS FROM ASPIRIN) Hiatal Hernia: No Hypertension: Yes (hx of, not currently on medications for HTN) Immune Disorder: Yes (RA) Implanted Vascular Access Dvce: No Musculoskeletal: Yes (Rheumatoid arthritis) Neurologic: Yes (TIA 2013, paraplegic migraines) Parkinson's Disease: Yes Psychiatric: Yes (depression) Reproductive: No Respiratory: Yes (seasonal asthma) Immunizations Current: Yes Migraines: Yes Radiation Therapy: Yes (RECTAL CANCER) Sleep Apnea: No Thyroid Disease: No ?: Not Menopausal: Yes : 2 Para: 1 Miscarriage: 1 : 0 Ectopic : Yes Ovarian Cysts: Yes Tubal Ligation: Yes Past Surgical History Abdominal Surgery: Yes (colon resection 01/2015, cholecystectomy) AICD: No Cardiac Surgery: No Cholecystectomy: Yes Ear Surgery: No Endocrine Surgery: No Eye Surgery: No Gynecologic Surgery: Yes (cyst removal right ovary, BILATERAL SALPINGECTOMY) Joint Replacement: No Oral Surgery: No Pacemaker: No Thoracic Surgery: No Other Surgery: Yes (TUMOR REMOVED LEFT FOOT) Social History Alcohol Use: No Tobacco Use: No Substance Use: No Allergies-Medications (Allergen,Severity, Reaction): Coded Allergies: penicillin G (Unverified Allergy, Severe, ANAPHALXIS, 04/14/17) sulfamethoxazole (Unverified Allergy, Severe, ITCHING, SWELLING LIPS & TONGUE, 04/14/17) trimethoprim (Unverified Allergy, Severe, ITCHING, SWELLING LIPS & TONGUE , 04/14/17) aspirin (Unverified Adverse Reaction, Severe, SILICITIC HEPATITIS, 04/14/17 ) codeine (Unverified Adverse Reaction, Severe, NAUSEA, 04/14/17) metoclopramide (Unverified Adverse Reaction, Severe, LOCKED JAW, 04/14/17) prochlorperazine (Unverified Adverse Reaction, Intermediate, 04/14/17) PT FEELS HEAVY AND HER SKIN IS CRAWLING Comments List of her allergies reviewed from the nursing note. Reported Meds & Prescriptions Reported Meds & Active Scripts Active Fioricet (Zucxqsnulm-Myfllsjcqycrr-Klekeicd) 50-300-40 Mg Cap 1-2 Cap PO Q6H PRN Reported Venlafaxine ER 24 HR (Venlafaxine HCl) 75 Mg Cap 75 Mg PO DAILY Verapamil (Verapamil HCl) 40 Mg Tab 20 Mg PO BID Narrative Medication List of her home medications reviewed from the nursing note. Review of Systems Except as stated in HPI: all other systems reviewed are Neg Neurologic: Positive: Headache Physical Exam Narrative GENERAL: Awake, alert, no obvious distress SKIN: Focused skin assessment warm/dry. HEAD: Atraumatic. Normocephalic. EYES: Pupils equal and round. No scleral icterus. No injection or drainage. ENT: No nasal bleeding or discharge. Mucous membranes pink and moist. NECK: Trachea midline. No JVD. CARDIOVASCULAR: Regular rate and rhythm. No murmur appreciated. RESPIRATORY: No accessory muscle use. Clear to auscultation. Breath sounds equal bilaterally. GASTROINTESTINAL: Abdomen soft, non-tender, nondistended. Hepatic and splenic margins not palpable. MUSCULOSKELETAL: No obvious deformities. No clubbing. No cyanosis. No edema. NEUROLOGICAL: Awake and alert. No obvious cranial nerve deficits. Motor grossly within normal limits. Normal speech. PSYCHIATRIC: Appropriate mood and affect; insight and judgment normal. Data Data Last Documented VS Orders Orders Verapamil (Isoptin) (04/14/17 10:30) Ed Discharge Order (04/14/17 10:27) [facility] [place] Medical Decision Making Medical Screen Exam Complete: Yes Emergency Medical Condition: Yes Medical Record Reviewed: Yes Differential Diagnosis Headache NOS, Narrative Course 10:40 AM I prescribed her usual dose of verapamil which the pharmacy does not have. At this point I'm comfortable discharging her home and she can go home and take her verapamil. She'll also go home with a prescription of Fioricet. Patient is comfortable with that plan. My opinion she has had extensive imaging study which has all yielded to be normal so far and I do not wish to order any further testing at this point. Procedures EKG Prior to Arrival: No Diagnosis Primary Impression: Tension type headache, unspecified Referrals: Primary Care Physician Additional Instructions: Take the medication as per the prescription direction. Follow-up with your primary care. Do not smoke, drink alcohol, eat cheese or chocolate or anything that would exacerbate the headache. Med/Other Pt SpecificInfo: Prescription(s) given Scripts Aoyskdsors-Euzobppskqiyf-Wbwfppuf (Fioricet) 50-300-40 Mg Cap 1-2 CAP PO Q6H Y for HEADACHE, #12 CAP 0 Refills Prov: Sylvia Ramos MD 04/14/17 Disposition: 01 DISCHARGE HOME Condition: Stable Sylvia Ramos MD Apr 14, 2017 10:00
[2017-04-14] MEDS ORDERED: VENL75CA44 PO (10:05)
[2017-04-14] MEDS ORDERED: VERA40TA PO (10:05)
[2017-04-14] MEDS ORDERED: BUTA1CAP PO (10:30)
[2017-04-14] MEDS ORDERED: VERAPAMIL HCL 40 MG TAB PO ONE (10:30)
== END 2017-04-14 10:42 | disposition home or self-care (01) ==
LOC: PHED 09:47
DX: G44.209 Tension-type headache, unspecified, not intractable (principal); I10 Essential (primary) hypertension; G20 Parkinson's disease; F32.9 Major depressive disorder, single episode, unspecified; M06.9 Rheumatoid arthritis, unspecified; Z86.73 Personal history of transient ischemic attack (TIA), and cerebral infarction without residual deficits; Z85.048 Personal history of other malignant neoplasm of rectum, rectosigmoid junction, and anus; Z88.0 Allergy status to penicillin; Z88.2 Allergy status to sulfonamides; Z88.5 Allergy status to narcotic agent; Z90.49 Acquired absence of other specified parts of digestive tract; Z79.899 Other long term (current) drug therapy
CPT/HCPCS: 99283

== ENCOUNTER 2017-08-06 12:11 | Emergency (ER) | payer SELFPAY ==
[~2017-08-06] VITALS: Ht 157.5 cm; Wt 65.5 kg
[~2017-08-06 12:11] MED LIST changes: -ACYC200C66 PO; -ALBU0.08 NEB; +BUTA1CAP PO; -LOMO2.5T PO; +VERA40TA PO; -ZOFR4TAB3 SL
[2017-08-06 12:24] VITALS: BP 131/74; PULSE 102; RESP 16; TEMP 98.5; O2SAT 99
[2017-08-06] MEDS ORDERED: MIRA3350 PO (13:41)
[2017-08-06] MEDS ORDERED: ACYC400T PO (13:41)
[2017-08-06] MEDS ORDERED: ALBU0.08 NEB (13:41)
--- NOTE | 2017-08-06 13:52 | PD ---
HPI Chief Complaint: Abdominal Pain Time Seen by Provider: 13:26 Travel History International Travel<30 days: No Contact w/Intl Traveler<30days: No Traveled to known affect area: No History of Present Illness HPI Is a 41-year-old woman presents to the emergency department complaining of abdominal pain and bloating. She is a history of rectal cancer, treated in 2015 with surgery, chemotherapy, radiation therapy. She has had bowel problems intermittently for the past 2 years. She says she is alternating constipation and diarrhea. She takes MiraLAX daily. States that over the past week or so she has had progressive worsening abdominal pain and bloating and fullness. She feels like her belly is distended. She saw Dr. Ellis this morning who did an anoscopy and did not see any obstipation or obstruction. Was referred to her primary physician. She is due to have CT scan follow-up for her malignancy monitoring as well. She has been disease-free according to the records that I can see. She has had some vomiting with this as well as nausea and decreased appetite. No urinary symptoms. No fevers. No other complaints. History Past Medical History Narrative Medical Rectal CA, status post chemoradiation surgery, surgery was in 2014, follows with Dr. Ellis, Dr. Muhammad Depression Hypertension Hemiplegic migraine Influenza Vaccination: No Menopausal: Yes : 2 Para: 1 Social History Alcohol Use: No Tobacco Use: No Allergies-Medications (Allergen,Severity, Reaction): Coded Allergies: penicillin G (Unverified Allergy, Severe, ANAPHALXIS, 08/06/17) sulfamethoxazole (Unverified Allergy, Severe, ITCHING, SWELLING LIPS & TONGUE, 08/06/17) trimethoprim (Unverified Allergy, Severe, ITCHING, SWELLING LIPS & TONGUE , 08/06/17) aspirin (Unverified Adverse Reaction, Severe, SILICITIC HEPATITIS, 08/06/17 ) codeine (Unverified Adverse Reaction, Severe, NAUSEA, 08/06/17) metoclopramide (Unverified Adverse Reaction, Severe, LOCKED JAW, 08/06/17) prochlorperazine (Unverified Adverse Reaction, Intermediate, 08/06/17) PT FEELS HEAVY AND HER SKIN IS CRAWLING Reported Meds & Prescriptions Reported Meds & Active Scripts Active Reported Acyclovir 400 Mg Tab Unknown Dose PO DAILY Albuterol Neb (Albuterol Sulfate) 2.5 Mg/3 Ml Neb Unknown Dose NEB DIRECTED Miralax Powder (Polyethylene Glycol 3350 Powder) 17 Gm Powd 17 Gm PO DAILY Mix and dissolve one measuring cap-ful (17 grams) in water or juice. Venlafaxine ER 24 HR (Venlafaxine HCl) 75 Mg Cap 75 Mg PO DAILY Review of Systems Except as stated in HPI: all other systems reviewed are Neg Physical Exam Narrative GENERAL: 41-year-old woman, generally well-appearing, no acute distress. SKIN: Focused skin assessment warm/dry. HEAD: Atraumatic. Normocephalic. EYES: Pupils equal and round. No scleral icterus. No injection or drainage. ENT: No nasal bleeding or discharge. Mucous membranes pink and moist. NECK: Trachea midline. No JVD. CARDIOVASCULAR: Regular rate and rhythm. No murmur appreciated. RESPIRATORY: No accessory muscle use. Clear to auscultation. Breath sounds equal bilaterally. GASTROINTESTINAL: Normal active bowel sounds. Abdomen is minimally distended, soft, mild to moderate diffuse tenderness, especially in the lower abdomen. Well-healed surgical scars. No rebound or guarding. MUSCULOSKELETAL: No obvious deformities. No clubbing. No cyanosis. No edema. NEUROLOGICAL: Awake and alert. No obvious cranial nerve deficits. Motor grossly within normal limits. Normal speech. Data Data Last Documented VS Vital Signs Date Time Temp Pulse Resp B/P (MAP) Pulse Ox O2 Delivery O2 Flow Rate FiO2 08/06/17 12:24 98.5 102 16 131/74 (93) 99 Orders Orders Urinalysis - C+S If Indicated (08/06/17 12:48) Ed Urine Pregnancytest Poc (08/06/17 12:48) Complete Blood Count With Diff (08/06/17 13:42) Comprehensive Metabolic Panel (08/06/17 13:42) Iv Access Insert/Monitor (08/06/17 13:42) Ct Abd/Pel W/O Iv Contrast (08/06/17 ) Urine Culture (08/06/17 13:30) Dicyclomine (Bentyl) (08/06/17 14:45) Labs Laboratory Tests Test 08/06/17 13:30 08/06/17 13:50 Urine Collection Type CLEAN CATCH Urine Color YELLOW Urine Turbidity SL CLOUDY Urine pH 6.0 Urine Specific [place] 1.020 Urine Protein NEG mg/dL Urine Glucose (UA) NEG mg/dL Urine Ketones NEG mg/dL Urine Occult Blood TRACE Urine Nitrite NEG Urine Bilirubin NEG Urine Urobilinogen 0.2 MG/DL Urine Leukocyte Esterase SMALL Urine RBC 0-3 /hpf Urine WBC 9-14 /hpf Urine WBC Clumps FEW Urine Squamous Epithelial Cells 0-5 /hpf Urine Amorphous Sediment FEW Urine Bacteria FEW /hpf Microscopic Urinalysis Comment CULTURE INDICATED Urine Collection Time 1330 White Blood Count 7.3 TH/MM3 Red Blood Count 4.44 MIL/MM3 Hemoglobin 12.7 GM/DL Hematocrit 38.3 % Mean Corpuscular Volume 86.2 FL Mean Corpuscular Hemoglobin 28.7 PG Mean Corpuscular Hemoglobin Concent 33.3 % Red Cell Distribution Width 13.6 % Platelet Count 380 TH/MM3 Mean Platelet Volume 6.9 FL Neutrophils (%) (Auto) 59.3 % Lymphocytes (%) (Auto) 22.3 % Monocytes (%) (Auto) 5.9 % Eosinophils (%) (Auto) 11.1 % Basophils (%) (Auto) 1.4 % Neutrophils # (Auto) 4.4 TH/MM3 Lymphocytes # (Auto) 1.6 TH/MM3 Monocytes # (Auto) 0.4 TH/MM3 Eosinophils # (Auto) 0.8 TH/MM3 Basophils # (Auto) 0.1 TH/MM3 CBC Comment DIFF FINAL Differential Comment Blood Urea Nitrogen 8 MG/DL Creatinine 0.72 MG/DL Random Glucose 94 MG/DL Total Protein 7.1 GM/DL Albumin 3.5 GM/DL Calcium Level 8.1 MG/DL Alkaline Phosphatase 127 U/L Aspartate Amino Transf (AST/SGOT) 17 U/L Alanine Aminotransferase (ALT/SGPT) 24 U/L Total Bilirubin 0.1 MG/DL Sodium Level 140 MEQ/L Potassium Level 3.9 MEQ/L Chloride Level 105 MEQ/L Carbon Dioxide Level 30.3 MEQ/L Anion Gap 5 MEQ/L Estimat Glomerular Filtration Rate 90 ML/MIN [facility] Medical Decision Making Medical Screen Exam Complete: Yes Emergency Medical Condition: Yes Differential Diagnosis Obstruction, constipation, distention, GI upset, other Narrative Course Medical decision making 41-year-old woman, history of rectal CA, here with abdominal pain and bloating. She said really frequent problems and she had her surgery and radiation. Multiple CT scans in the past year. Looks overall well. Minimal distention to her abdomen. Soft. Will repeat CT scan. She has had reaction IV contrast with her last injection. I spoke to the radiologist, who recommends noncontrast CT given her concern for obstruction. If she needs IV contrast as an outpatient she can have the full steroid protocol. Reassess. Diagnosis Primary Impression: Abdominal pain Additional Impression: Constipation Additional Instructions: Drink plenty of fluids stay well-hydrated. Continue MiraLAX daily. Take magnesium citrate one time as prescribed. Use Bentyl if needed for abdominal cramping. Follow-up with your primary doctor in the next 2-4 days. Med/Other Pt SpecificInfo: Prescription(s) given Scripts Magnesium Citrate Liq (Magnesium Citrate Liq) 300 Ml Liq 300 ML PO ONCE, #1 BOTTLE 0 Refills Prov: Jc Rashid MD 08/06/17 Dicyclomine (Bentyl) 10 Mg Cap 10 MG PO TID Y for ABDOMINAL CRAMPING, #12 CAP 0 Refills Prov: Jc Rashid MD 08/06/17 Disposition: 01 DISCHARGE HOME Condition: Stable Jc Rashid MD Aug 06, 2017 13:52
[2017-08-06 14:00] LABS: BILIRUBIN, URINE NEG (NEG); BLOOD, URINE TRACE (NEG); GLUCOSE,URINE NEG (NEG); KETONE, URINE NEG (NEG); NITRITE,URINE NEG (NEG); URINE COLOR YELLOW (YELLW/STRAW); URINE LEUKOCYTE ESTERASE SMALL (NEG)
[2017-08-06 14:11] LABS: AUTOMATED NEUTROPHIL # 4.4 TH/MM3 (1.8-7.7); BASOPHIL # 0.1 TH/MM3 (0-0.2); BASOPHIL % 1.4 % (0.0-2.0); EOSINOPHIL # 0.8 TH/MM3 (0-0.4); EOSINOPHIL % 11.1 % (0.0-4.0); HEMATOCRIT 38.3 % (35.0-46.0); HEMOGLOBIN 12.7 GM/DL (11.6-15.3); LYMPH % 22.3 % (9.0-44.0); LYMPHOCYTE # 1.6 TH/MM3 (1.0-4.8); MEAN CELL VOLUME 86.2 FL (80.0-100.0); MEAN CORPUSCULAR HEMOGLOBIN 28.7 PG (27.0-34.0); MEAN CORPUSCULAR HGB CONC 33.3 % (32.0-36.0); MEAN PLATELET VOLUME 6.9 FL (7.0-11.0); MONO % 5.9 % (0.0-8.0); MONOCYTE # 0.4 TH/MM3 (0-0.9); NEUT % 59.3 % (16.0-70.0); PLATELET COUNT 380 TH/MM3 (150-450); RED BLOOD COUNT 4.44 MIL/MM3 (4.00-5.30); RED CELL DISTRIBUTION WIDTH 13.6 % (11.6-17.2); WHITE BLOOD COUNT 7.3 TH/MM3 (4.0-11.0)
[2017-08-06 14:12] LABS: RBC, URINE 0-3 /hpf (0-3)
[2017-08-06 14:13] LABS: AMORPHOUS SEDIMENT, URINE FEW; BACTERIA, URINE FEW /hpf; SQUAMOUS EPITHELIAL CELL URINE 0-5 /hpf (0-5); WHITE BLOOD CELL CLUMPS FEW
[2017-08-06 14:20] LABS: CHLORIDE 105 MEQ/L (98-107); SODIUM (NA) 140 MEQ/L (136-145)
[2017-08-06 14:23] LABS: CALCIUM 8.1 MG/DL (8.5-10.1)
[2017-08-06 14:24] LABS: ALBUMIN 3.5 GM/DL (3.4-5.0); BICARBONATE 30.3 MEQ/L (21.0-32.0); BLOOD UREA NITROGEN 8 MG/DL (7-18); GLUCOSE,RANDOM 94 MG/DL (74-106)
[2017-08-06 14:27] LABS: ALT (GPT) 24 U/L (10-53); AST (GOT) 17 U/L (15-37); CREATININE 0.72 MG/DL (0.50-1.00); GLOMERULAR FILTRATION RATE 90 ML/MIN (>89)
[2017-08-06 14:29] LABS: TOTAL BILIRUBIN ADULT 0.1 MG/DL (0.2-1.0); TOTAL PROTEIN 7.1 GM/DL (6.4-8.2)
[2017-08-06 14:30] LABS: ALKALINE PHOSPHATASE 127 U/L (45-117)
--- NOTE | 2017-08-06 14:30 | RADRPT ---
EXAM DATE/TIME: 08/06/2017 14:10 [facility] COMPARISON: No previous studies available for comparison. INDICATIONS : Diffuse abdominal pain with nausea, vomiting, and bloating. ORAL CONTRAST: No oral contrast ingested. RADIATION DOSE: 9.34 CTDIvol (mGy) MEDICAL HISTORY : Carcinoma, rectal. Cerebrovascular disease. Renal calculi.Hypertension. SURGICAL HISTORY : Colon resection. Cholecystectomy.Tubal ligation.Bilateral salpingectomy. ENCOUNTER: Initial ACUITY: 3 days PAIN SCALE: 5/10 LOCATION: pelvis abdomen TECHNIQUE: Volumetric scanning of the abdomen and pelvis was performed. Using automated exposure control and ad justment of the mA and/or kV according to patient size, radiation dose was kept as low as reasonably achievable to obtain optimal diagnostic quality images. DICOM format image data is available electro nically for review and comparison. FINDINGS: Lung bases are clear. No acute findings in the liver, spleen, adrenals, right kidney or pancreas. The re is a nonobstructing 2 mm calculus lower pole left kidney. There is no free fluid or bowel obstruction. There is a bowel staple line in the low rectum. There is some surrounding soft tissue are in the presacral region which is stable since July 2016. CONCLUSION: 1. Her postsurgical changes in the rectum with surrounding soft tissue stable over the last year. 2. No acute findings. Nonobstructing calculus lower pole left kidney. Daniel Fairchild MD on August 06, 2017 at 14:20 Board Certified Radiologist. This report was verified electronically.
[2017-08-06] MEDS ORDERED: DICY10 PO (14:43)
[2017-08-06] MEDS ORDERED: MAGNSOL2 PO (14:43)
[2017-08-06] MEDS ORDERED: DICYCLOMINE HCL 10 MG CAP PO ONE (14:45)
== END 2017-08-06 15:00 | disposition home or self-care (01) ==
LOC: PHEFT 12:11
DX: R10.9 Unspecified abdominal pain (principal); K59.00 Constipation, unspecified; I10 Essential (primary) hypertension; R82.99 Other abnormal findings in urine; F32.9 Major depressive disorder, single episode, unspecified; Z85.048 Personal history of other malignant neoplasm of rectum, rectosigmoid junction, and anus; Z92.3 Personal history of irradiation; Z92.21 Personal history of antineoplastic chemotherapy; Z90.49 Acquired absence of other specified parts of digestive tract; Z88.0 Allergy status to penicillin; Z88.2 Allergy status to sulfonamides; Z88.5 Allergy status to narcotic agent
CPT/HCPCS: 74176; 80053; 81001; 84703; 85025; 87086; 99284

== ENCOUNTER → 2017-08-19 | Outpatient (CLI) | payer OTHER ==
[~2017-08-19] MED LIST changes: +ACYC400T PO; +ALBU0.08 NEB; -BUTA1CAP PO; +DICY10 PO; +MAGNSOL2 PO; +MIRA3350 PO; -VERA40TA PO
== END ==
LOC: PLAB 07:48
PROVIDERS: ATTEND Family Medicine
DX: Z85.038 Personal history of other malignant neoplasm of large intestine (principal)
CPT/HCPCS: 36415; 82378

== ENCOUNTER → 2017-08-28 | Outpatient (CLI) | payer OTHER ==
[2017-08-28 18:22] LABS: BICARBONATE 29.5 MEQ/L (21.0-32.0); CALCIUM 8.7 MG/DL (8.5-10.1); CREATININE 0.76 MG/DL (0.50-1.00)
== END ==
LOC: PLAB 13:22
PROVIDERS: ATTEND Family Medicine
DX: R14.0 Abdominal distension (gaseous) (principal); Z80.41 Family history of malignant neoplasm of ovary
CPT/HCPCS: 36415; 80048; 86304

== ENCOUNTER → 2017-09-04 | Outpatient (CLI) | payer OTHER ==
--- NOTE | 2017-09-04 10:25 | RADRPT ---
EXAM DATE/TIME: 09/04/2017 08:59 [facility] COMPARISON: No previous studies available for comparison. INDICATIONS : Reflux/Obstruction. Patient complains of abdomen distention, weight gain and weight loss. FLUORO TIME: 1.7 minutes IMAGE COUNT: CONTRAST: Liquid E-Z Paque Barium Sulfate (60% w/v, 41% w/w) IMAGING TIME(S): 30 min, 45 min, 1 hr, 1.5 hrs, 2 hr, 2.5 hrs MEDICAL HISTORY : Carcinoma, rectal. 3 years ago. SURGICAL HISTORY : Colon resection. GB removed, tubes tied and removed. ENCOUNTER: Initial ACUITY: 2 months PAIN SCORE: 0/10 LOCATION: Bilateral abdomen. FINDINGS: Preliminary film is unremarkable. Examination of the swallowing function demonstrates no evidence of aspiration or penetration. The sumi dy of the esophagus is unremarkable. No reflux or hiatal hernia is identified. Examination of the stomach demonstrates no evidence of intraluminal mass or extrinsic compression. T he gastric volume appears normal and there are no findings of ulceration. The mucosal pattern appear s normal. The duodenal bulb and sweep appear normal. The visualized small bowel is unremarkable. CONCLUSION: Normal examination. Small bowel transit time under an hour. Jc Gann MD on September 04, 2017 at 10:22 Board Certified Radiologist. This report was verified electronically.
== END ==
LOC: HRAD 08:25
PROVIDERS: ATTEND Colon & Rectal Surgery
DX: R10.33 Periumbilical pain (principal); Z85.038 Personal history of other malignant neoplasm of large intestine
CPT/HCPCS: 74245

== ENCOUNTER 2017-09-25 12:26 | Emergency (ER) | payer SELFPAY ==
[~2017-09-25] VITALS: Ht 157.5 cm; Wt 68.0 kg
[2017-09-25 12:31] VITALS: BP 122/80; PULSE 108; RESP 28; TEMP 97.5; O2SAT 100
[2017-09-25] MEDS ORDERED: ONDANSETRON ODT 4 MG TAB PO ONE (12:45)
[2017-09-25] MEDS ORDERED: estrogen patch I-DERMAL (12:45)
[2017-09-25] MEDS ORDERED: MEDR5TAB3 PO (12:45)
[2017-09-25] MEDS ORDERED: FURO1TAB62 PO (12:45)
[2017-09-25] MEDS ORDERED: MORPHINE SULFATE 2 MG/ML SYRINGE IV PUSH ONE ×2 (12:45→14:15)
--- NOTE | 2017-09-25 12:53 | PD ---
HPI Chief Complaint: Fall Time Seen by Provider: 12:38 Travel History International Travel<30 days: No Contact w/Intl Traveler<30days: No Traveled to known affect area: No History of Present Illness HPI 42-year-old female who presents to the ED via private vehicle for evaluation of left wrist injury after a fall from a small ladder. Patient had a fall was not witnessed by anybody else on her left wrist. Was in 3-4 feet ladder. Denies losing consciousness and states that the only pain that she has is of her left arm patient has any right arm pain. She states having some numbness and tingling on her arms and legs but this has gone away since being here. She denies any back or neck pain. No blood thinner use. No prior injuries to the left wrist. Patient does have bruising and swelling noted with what appears to be deformity to the left wrist. Has not taken anything for this. Injury occurred less than an hour ago. Patient was sent home with son who was painting and brought the patient here for evaluation. Has been acting normal otherwise per her son. No signs of head injury. She does have a significant history of cancer to has been in remission. Pain per patient is 10 out of 10 on the left wrist. PFSH Past Medical History Hx Anticoagulant Therapy: No Anemia: Yes Arthritis: Yes Asthma: Yes (seasonal asthma) Autoimmune Disease: Yes Blood Disorders: No Anxiety: Yes Depression: Yes Heart Rhythm Problems: No Cancer: Yes (colorectal, surgery 01/2015) Cardiovascular Problems: Yes (htn but not on meds) Chemotherapy: Yes Chest Pain: No Congestive Heart Failure: No COPD: No Cerebrovascular Accident: Yes (tia ) Diabetes: No Diminished Hearing: No Endocrine: No Gastrointestinal Disorders: Yes Genetic Disorder: No Genitourinary: Yes (had "bladder stretched" when she was younger, herpes) Headaches: Yes (HEMIPLEGIA /MIGRANE) Hepatitis: Yes (HX HEPATITIS FROM ASPIRIN) Hiatal Hernia: No Hypertension: Yes (hx of, not currently on medications for HTN) Immune Disorder: Yes (RA) Implanted Vascular Access Dvce: No Musculoskeletal: Yes (Rheumatoid arthritis) Neurologic: Yes (TIA 2013, paraplegic migraines) Parkinson's Disease: Yes Psychiatric: Yes (depression) Reproductive: No Respiratory: Yes (seasonal asthma) Immunizations Current: Yes Migraines: Yes Radiation Therapy: Yes (RECTAL CANCER) Sleep Apnea: No Thyroid Disease: No ?: Not LMP: [place] Menopausal: Yes : 2 Para: 1 Miscarriage: 1 : 0 Ectopic : Yes Ovarian Cysts: Yes Tubal Ligation: Yes Past Surgical History Abdominal Surgery: Yes (colon resection 01/2015, cholecystectomy) AICD: No Cardiac Surgery: No Cholecystectomy: Yes Ear Surgery: No Endocrine Surgery: No Eye Surgery: No Gynecologic Surgery: Yes (cyst removal right ovary, BILATERAL SALPINGECTOMY) Joint Replacement: No Oral Surgery: No Pacemaker: No Thoracic Surgery: No Other Surgery: Yes (TUMOR REMOVED LEFT FOOT) Social History Alcohol Use: No Tobacco Use: No Substance Use: No Allergies-Medications (Allergen,Severity, Reaction): Coded Allergies: penicillin G (Unverified Allergy, Severe, ANAPHALXIS, 09/25/17) sulfamethoxazole (Unverified Allergy, Severe, ITCHING, SWELLING LIPS & TONGUE, 09/25/17) trimethoprim (Unverified Allergy, Severe, ITCHING, SWELLING LIPS & TONGUE , 09/25/17) aspirin (Unverified Adverse Reaction, Severe, SILICITIC HEPATITIS, 09/25/17 ) codeine (Unverified Adverse Reaction, Severe, NAUSEA, 09/25/17) metoclopramide (Unverified Adverse Reaction, Severe, LOCKED JAW, 09/25/17) prochlorperazine (Unverified Adverse Reaction, Intermediate, 09/25/17) PT FEELS HEAVY AND HER SKIN IS CRAWLING Reported Meds & Prescriptions Reported Meds & Active Scripts Active Reported Medroxyprogesterone Acetate 5 Mg Tab 2 Mg PO DAILY Start day 21 Lasix (Furosemide) 20 Mg Tab 20 Mg PO DAILY [estrogen patch] 0.05 Mg I-DERMAL DAILY Venlafaxine ER 24 HR (Venlafaxine HCl) 75 Mg Cap 75 Mg PO BID Review of Systems Except as stated in HPI: all other systems reviewed are Neg Physical Exam Narrative GENERAL: SKIN: Warm and dry. HEAD: Atraumatic. Normocephalic. EYES: Pupils equal and round. No scleral icterus. No injection or drainage. ENT: No nasal bleeding or discharge. Mucous membranes pink and moist. Tongue is midline. No uvula deviation. NECK: Trachea midline. No JVD. CARDIOVASCULAR: Regular rate and rhythm. RESPIRATORY: No accessory muscle use. Clear to auscultation. Breath sounds equal bilaterally. GASTROINTESTINAL: Abdomen soft, non-tender, nondistended. Hepatic and splenic margins not palpable. MUSCULOSKELETAL: Extremities without clubbing, cyanosis, or edema. No obvious deformities. 2+ pulses bilaterally in the upper and lower extremities bilaterally. Patient does have full range of motion of all extremities with exception of the left wrist. Patient keeps her hand flexed and swelling and deformity noted to the radial head. Bruising noted in this area. No elbow pain. No shoulder pain noted. No lumbar, thoracic, cervical spine tenderness to palpation. Full range of motion of the lower extremities with no pain. Sensation intact bilaterally. Patient will not move the left hand and finger secondary to pain. NEUROLOGICAL: Awake and alert. No obvious cranial nerve deficits. Motor grossly within normal limits. Five out of 5 muscle strength in the arms and legs. Normal speech. PSYCHIATRIC: Appropriate mood and affect; insight and judgment normal. Data Data Last Documented VS Vital Signs Date Time Temp Pulse Resp B/P (MAP) Pulse Ox O2 Delivery O2 Flow Rate FiO2 09/25/17 12:31 97.5 108 28 122/80 (94) 100 Orders Orders Iv Access Insert/Monitor (09/25/17 12:39) Morphine Inj (Morphine Inj) (09/25/17 12:45) Ondansetron Odt (Zofran Odt) (09/25/17 12:45) Hand, Limited (2vws) (09/25/17 12:39) Wrist, Complete (Lip4xer) (09/25/17 12:39) Ice/Cold Pack (09/25/17 12:39) MDM Medical Decision Making Medical Screen Exam Complete: Yes Emergency Medical Condition: Yes Medical Record Reviewed: Yes Differential Diagnosis Fracture versus sprain versus strain versus bruise versus contusion versus fall Narrative Course 42-year-old female that presents to the ED for evaluation of injury to her left wrist. Patient was properly examined and was found to have signs and symptoms Kirk Kaye September 25, 2017 12:53
[2017-09-25 13:12] VITALS: BP 124/79; PULSE 90; RESP 18; TEMP 98; O2SAT 100
[2017-09-25] MEDS ORDERED: MORPHINE SULFATE 4 MG/ML INJ IV PUSH ONE ×2 (13:15→14:15)
--- NOTE | 2017-09-25 13:33 | RADRPT ---
EXAM DATE/TIME: 09/25/2017 12:54 [facility] COMPARISON: WRIST LEFT COMPLETE ([id number]), September 25, 2017, 12:54. INDICATIONS : Fall off ladder, left wrist pain. MEDICAL HISTORY : None. SURGICAL HISTORY : None. ENCOUNTER: Initial ACUITY: 1 day PAIN SCORE: 10/10 LOCATION: Left wrist FINDINGS: Impacted slightly comminuted fracture of the distal radius with subtle dorsal angulation of the dista l fragment. Remaining osseous structures appear intact. Mild soft tissue prominence about the wrist. CONCLUSION: 1. Distal radial fracture, as above. Juan F Yi MD on September 25, 2017 at 13:29 Board Certified Radiologist. This report was verified electronically.
--- NOTE | 2017-09-25 13:36 | RADRPT ---
EXAM DATE/TIME: 09/25/2017 12:54 [facility] COMPARISON: No previous studies available for comparison. INDICATIONS : Fall off ladder, left wrist pain. MEDICAL HISTORY : None. SURGICAL HISTORY : None. ENCOUNTER: Initial ACUITY: 1 day PAIN SCORE: 10/10 LOCATION: Left wrist FINDINGS: Slightly comminuted impacted fracture of the distal radius extending through the radiocarpal joint wi th minimal ulnar displacement of a small distal fragment. Remaining osseous structures appear intact. Soft tissue prominence about the wrist. CONCLUSION: 1. Comminuted intra-articular fracture of the distal radius, as above. Juan F Yi MD on September 25, 2017 at 13:31 Board Certified Radiologist. This report was verified electronically.
[2017-09-25 14:12] VITALS: BP 96/63; PULSE 83; RESP 18; O2SAT 100
[2017-09-25] MEDS ORDERED: HYDR-3583 PO (15:08)
[2017-09-25 15:20] VITALS: BP 111/78; PULSE 78; RESP 18; O2SAT 97
[2017-09-25] MEDS ORDERED: DICL75TA PO (15:34)
--- NOTE | 2017-09-25 15:37 | PD ---
Physical Exam Date Seen by Provider: September 25, 2017 Time Seen by Provider: 15:36 Narrative Please refer to my previous note. My attending sent my note before I could finish the note. This is a continuation of the previous note. Data Data Last Documented VS Vital Signs Date Time Temp Pulse Resp B/P (MAP) Pulse Ox O2 Delivery O2 Flow Rate FiO2 09/25/17 15:20 78 18 111/78 (89) 97 Room Air 09/25/17 13:12 98.0 Orders Orders Iv Access Insert/Monitor (09/25/17 12:39) Morphine Inj (Morphine Inj) (09/25/17 12:45) Ondansetron Odt (Zofran Odt) (09/25/17 12:45) Hand, Limited (2vws) (09/25/17 12:39) Wrist, Complete (Itg2fox) (09/25/17 12:39) Ice/Cold Pack (09/25/17 12:39) Morphine Inj (Morphine Inj) (09/25/17 13:15) Splint Or Brace Apply/Monitor (09/25/17 13:40) Morphine Inj (Morphine Inj) (09/25/17 14:15) Fiberglass Sugartong Sp Ad Arm (09/25/17 ) Sling Cradle Arm (09/25/17 ) Morphine Inj (Morphine Inj) (09/25/17 14:15) Ed Discharge Order (09/25/17 15:34) Mandatory Outpatient Referral (09/25/17 15:34) MDM Medical Record Reviewed: Yes Supervised Visit with LANDEN: No Interpretation(s) Last Impressions Wrist X-Ray 09/25/17 1239 Signed Impressions: Service Date/Time: Monday, September 25, 2017 12:54 - CONCLUSION: 1. Comminuted intra-articular fracture of the distal radius, as above. Juan F Yi MD Hand X-Ray 09/25/17 1232 Signed Impressions: Service Date/Time: Monday, September 25, 2017 12:54 - CONCLUSION: 1. Distal radial fracture, as above. Juan F Yi MD Differential Diagnosis Fracture versus sprain versus strain versus bruise versus contusion Narrative Course 42-year-old female that presents to the ED for evaluation of injury to her left hand. Patient was properly examined and was found to have signs and symptoms concerning for fracture. X-rays did show positive fracture on the left radial head. Case discussed with my attending who recommends we speak with orthopedic surgeon secondary to intra-articular involvement. Case discussed with Dr. Kaye who recommends outpatient treatment. Put on splint. Patient was told this and agrees with plan. Patient was given IV pain medication here with some relief. She was given prescription for Lortab and diclofenac sodium. Ice or warm compresses. Splint placed. Mandatory referral ordered. See ED worsening symptoms. Diagnosis Primary Impression: Radial head fracture, closed Qualified Codes: S52.125A - Nondisplaced fracture of head of left radius, initial encounter for closed fracture Referrals: Tony Kaye MD Patient Instructions: Narcotic given in the ED, General Instructions Additional Instruction: Take medications as prescribed. Follow-up with ortho. See ED for any worsening symptoms. Do not drink or drive while taking pain medication. Apply ice or heat as needed for pain Med/Other Pt SpecificInfo: Prescription(s) given Scripts Diclofenac Sodium (Diclofenac Sodium DR) 75 Mg Tabdr 75 MG PO BID Y for PAIN SCALE 1 TO 10, #20 TAB 0 Refills Prov: Jonny Lopez MD 09/25/17 Hydrocodone/Acetaminophen (Hydrocodone-Acetamin 10-325 mg) 10 Mg-325 Mg Tablet 1 TAB PO Q6HR Y for PAIN SCALE 1 TO 10, #14 Prov: Jonny Lopez MD 09/25/17 Disposition: 01 DISCHARGE HOME Condition: Stable Kirk Kaye September 25, 2017 15:37
[2017-09-27] MEDS ORDERED: TRAM50TA PO (12:24)
== END 2017-09-25 15:50 | disposition home or self-care (01) ==
LOC: PHEFT 12:26
DX: S52.502A Unspecified fracture of the lower end of left radius, initial encounter for closed fracture (principal); D64.9 Anemia, unspecified; M19.90 Unspecified osteoarthritis, unspecified site; J45.909 Unspecified asthma, uncomplicated; I10 Essential (primary) hypertension; G82.20 Paraplegia, unspecified; M06.9 Rheumatoid arthritis, unspecified; W11.XXXA Fall on and from ladder, initial encounter; Z86.73 Personal history of transient ischemic attack (TIA), and cerebral infarction without residual deficits
CPT/HCPCS: 29125; 73110; 73120; 96374; 96376; 99284; J2270

== ENCOUNTER 2017-09-27 10:28 | Emergency (ER) | END 2017-09-27 12:50 | disposition home or self-care (01) | DX: M25.532 Pain in left wrist (principal); S52.502D Unspecified fracture of the lower end of left radius, subsequent encounter for closed fracture with routine healing; R20.2 Paresthesia of skin; I10 Essential (primary) hypertension; F41.8 Other specified anxiety disorders; X58.XXXD Exposure to other specified factors, subsequent encounter; Z87.39 Personal history of other diseases of the musculoskeletal system and connective tissue; Z86.73 Personal history of transient ischemic attack (TIA), and cerebral infarction without residual deficits; Z87.19 Personal history of other diseases of the digestive system; Z87.448 Personal history of other diseases of urinary system; Z86.69 Personal history of other diseases of the nervous system and sense organs | CPT/HCPCS: 96372; 99281; J2270 ==

== ENCOUNTER → 2017-10-04 | Day surgery (SDC) | payer SELFPAY ==
[~2017-10-04] VITALS: Ht 157.5 cm; Wt 68.5 kg
[~2017-10-04] MED LIST changes: +*morphine SULFATE 10 MG/ML PERIprocedure ONLY ONE; +ACETAMINOPHEN 1000 MG/100 ML 100 ML IV ONE; +ACETAMINOPHEN/HYDROcodone 325 MG/7.5 MG TAB PO PRN; -ACYC400T PO; -ALBU0.08 NEB; +APREPITANT 40 MG CAP ONE; +APREPITANT 40 MG CAP PO ONE; +BUPIVACAINE/EPINEPHRINE 0.25% 50 ML VIAL ONE; +CHLORHEXIDINE GLUCONATE 2 % 1 PACK (2 CLOTHS) TOPICAL PRN; +CHLORHEXIDINE GLUCONATE 4% SOLN 120 ML BTL TOPICAL SCH; +DEXAMETHASONE SOD PHOS 4 MG/ML VIAL IV ONE; -DICY10 PO; +DO NOT ADM ANY ANTICOAGULANT DRUGS PRN; +FURO1TAB62 PO; +GENTAMICIN SULFATE 80 MG/2 ML VIAL ONE; +HYDR-3288 PO; +HYDR-3583 PO; +LACTATED RINGER'S 1000 ML IV PRN; +LIDOCAINE HCL 1% PF 5 ML SYRINGE OTHER ONE; -MAGNSOL2 PO; +MEDR5TAB3 PO; +METOPROLOL TARTRATE 25 MG TAB PO PRN; +MIDAZOLAM HCL 2 MG/2 ML VIAL ONE; -MIRA3350 PO; +MORPHINE SULFATE 2 MG/ML SYRINGE ONE; +MORPHINE SULFATE 4 MG/ML INJ IV ONE; +MORPHINE SULFATE 4 MG/ML INJ IV PUSH PRN; +ONDANSETRON HCL 4 MG/2 ML VIAL IV PUSH ONE; +PHENYLEPH/NS 1000 MCG/10 ML SYR IV ONE; +POVIDONE IODINE 5% (ANTISEPSIS KIT) 4 APPLICATIONS EACH NARE PRN; +PROPOFOL 200 MG/20 ML AMP IV ONE; +SODIUM CHLORID 0.9% 500 ML IV PRN; +TRAM50TA PO; +VANCOMYCIN 1000 MG/NS 250 ML (for <70 kg) IV SCH; +ceFAZolin 2 GM PREMIX 50 ML ONE; +ePHEDrine/NS 25 MG/5 ML SYRINGE IV ONE; +estrogen patch I-DERMAL
--- NOTE | 2017-10-04 09:20 | PD.OP ---
cc: Dominick Robison MD Operative Report Date of Surgery: October 04, 2017 Preoperative Diagnosis: Comminuted displaced intra-articular left distal radius fracture Postoperative Diagnosis: Procedure: Open reduction internal fixation of left distal radius fracture, external fixation left wrist Anesthesia: General Surgeon: Dominick Robison Metal Mover(s): IRMA Carlson PA-C The surgical procedure was assisted by my physician commercial real estate assistant. My P.A. presence was necessary throughout this case for the manipulation and positioning of the surgical extremity. My P.A. was assisting me throughout the duration of this procedure. The skill set of a physician commercial real estate assistant was medically necessary to complete this procedure. During the surgical case the install and repair technician was working at the back table and the physician commercial real estate assistant was directly assisting me. Operation and Findings: Implants used: ITS distal radius plate, Nicole external fixation Plan of activity: Nonweightbearing Details of procedure: Patient was seen and evaluated preoperatively and found to have a comminuted intra-articular left displaced distal radius fracture. Informed consent was obtained after detailed discussion of risk and benefits including bleeding, infection, injury to arteries, nerves, and blood vessels, weakness and numbness of hand, and tendon rupture. Informed consent was obtained. Patient received IV antibiotics prior to incision. Timeout procedure was performed. Operative extremity was prepped with alcohol followed by Hibiclens and draped usual sterile fashion. A standard volar approach to the distal radius was utilized. A 3 inch incision was made over the FCR tendon. Tendon sheath was opened. Pronator quadratus was elevated up. The fracture site was now visualized. The fracture did have intra-articular extension. There were multiple small articular fragments. At this point decision was made to place external fixation for additional stability. 2 small incisions were made over the radial shaft. 2 additional incisions were made over the second metacarpal. Pin sites were predrilled. 2.5 mm pins were now placed into the radius and second metacarpal. An external fixator construct was created. At this point traction was applied. Fracture was depleted. Fracture keyed in excellent alignment. External fixator was tightened to hold reduction. At this point attention was turned towards open reduction internal fixation. The articular surface was reduced. Fracture fragments were manipulated to achieve excellent reduction. K wires were used to hold provisional fixation. Fluoroscopy confirmed appropriate alignment of fracture. A variable angle distal radius plate was selected. Plate was provisionally fixed to bone with K wires. 2.7 and 2.4 cortical screws were used to compress plate to bone. Fluoroscopy confirmed appropriate alignment of fracture with well-placed hardware. Multiple 2.4 locking screws were now placed distally. Screws were predrilled and measured for appropriate length. 2 additional screws were placed into the shaft. K wires were removed. Final fluoroscopy revealed excellent of fracture with well-placed hardware. The wound was thoroughly irrigated with sterile saline. Subcutaneous tissue was closed with 3-0 Vicryl and skin was closed with 3-0 nylon. Sterile dressings were applied with Xeroform, 4 x 4, soft roll, and a well padded volar splint. Patient was awakened and transferred to recovery room in stable condition Dominick Robison MD October 04, 2017 09:20
[2017-10-04 11:35] VITALS: BP 119/70; PULSE 96; RESP 20; TEMP 98.4; O2SAT 97
--- NOTE | 2017-10-04 22:18 | RADRPT ---
EXAM DATE: 10/04/2017 10:11 PM EDT AGE/SEX: 42 years / Female INDICATIONS: ORIF left wrist in operating room. CLINICAL DATA: This is the patient's subsequent encounter. Patient reports that signs and symptoms h ave been present for 1 day and indicates a pain score of Nonresponsive. MEDICAL/SURGICAL HISTORY: Non-responsive. Non-responsive. COMPARISON: No prior [facility] exams available for comparison. FINDINGS: 2 images are recorded digitally in the operating room using C-arm. Internal and external fixation kennedy ramirez is present. CONCLUSION: Intraoperative images. Electronically signed by: Pete Giron MD 10/04/2017 10:17 PM EDT
== END | disposition home or self-care (01) ==
LOC: HSDC 05:43
PROVIDERS: ATTEND Orthopaedic Surgery Orthopaedic Trauma
DX: S52.572A Other intraarticular fracture of lower end of left radius, initial encounter for closed fracture (principal)
CPT/HCPCS: 01830; 20690; 25609; 73100; 76000; C1713; J0131; J0690; J1100; J1580; J2250; J2270; J2370; J2405; J3010; J3370; J7050; J7120; J8501

== ENCOUNTER 2017-10-20 14:16 | Emergency (ER) | payer SELFPAY ==
[~2017-10-20] VITALS: Ht 157.5 cm; Wt 68.0 kg
[~2017-10-20 14:16] MED LIST changes: -*morphine SULFATE 10 MG/ML PERIprocedure ONLY ONE; -ACETAMINOPHEN 1000 MG/100 ML 100 ML IV ONE; -ACETAMINOPHEN/HYDROcodone 325 MG/7.5 MG TAB PO PRN; -APREPITANT 40 MG CAP ONE; -APREPITANT 40 MG CAP PO ONE; -BUPIVACAINE/EPINEPHRINE 0.25% 50 ML VIAL ONE; -CHLORHEXIDINE GLUCONATE 2 % 1 PACK (2 CLOTHS) TOPICAL PRN; -CHLORHEXIDINE GLUCONATE 4% SOLN 120 ML BTL TOPICAL SCH; -DEXAMETHASONE SOD PHOS 4 MG/ML VIAL IV ONE; -DO NOT ADM ANY ANTICOAGULANT DRUGS PRN; -GENTAMICIN SULFATE 80 MG/2 ML VIAL ONE; -LACTATED RINGER'S 1000 ML IV PRN; -LIDOCAINE HCL 1% PF 5 ML SYRINGE OTHER ONE; -MEDR5TAB3 PO; -METOPROLOL TARTRATE 25 MG TAB PO PRN; -MIDAZOLAM HCL 2 MG/2 ML VIAL ONE; -MORPHINE SULFATE 2 MG/ML SYRINGE ONE; -MORPHINE SULFATE 4 MG/ML INJ IV ONE; -MORPHINE SULFATE 4 MG/ML INJ IV PUSH PRN; -ONDANSETRON HCL 4 MG/2 ML VIAL IV PUSH ONE; -PHENYLEPH/NS 1000 MCG/10 ML SYR IV ONE; -POVIDONE IODINE 5% (ANTISEPSIS KIT) 4 APPLICATIONS EACH NARE PRN; -PROPOFOL 200 MG/20 ML AMP IV ONE; -SODIUM CHLORID 0.9% 500 ML IV PRN; -VANCOMYCIN 1000 MG/NS 250 ML (for <70 kg) IV SCH; -ceFAZolin 2 GM PREMIX 50 ML ONE; -ePHEDrine/NS 25 MG/5 ML SYRINGE IV ONE; -estrogen patch I-DERMAL
[2017-10-20 14:25] VITALS: BP 171/94; PULSE 102; RESP 16; TEMP 98.9; O2SAT 100
--- NOTE | 2017-10-20 14:42 | PD ---
HPI Chief Complaint: Manager Hydraulic Problem Time Seen by Provider: 14:32 Travel History International Travel<30 days: No Contact w/Intl Traveler<30days: No Traveled to known affect area: No History of Present Illness HPI Patient comes emergency department with concerns over her ex-fix that was applied 2 weeks ago. Patient states that she contacted the surgeon Dr. Guerrero who recommend that she removed the dressing and clean around sites. Patient got concerned after removal of the dressing some bleeding around site of one the pins. Patient felt that the opening was larger than needed to be as well as being larger than the others. Patient denies any new pain with this, fevers , or purulent drainage. Denies anything making symptoms better or worse. PFSH Past Medical History Hx Anticoagulant Therapy: No Anemia: Yes Arthritis: Yes Asthma: Yes (seasonal asthma) Autoimmune Disease: Yes Blood Disorders: No Anxiety: Yes Depression: Yes Heart Rhythm Problems: No Cancer: Yes (colorectal, surgery 01/2015) Cardiovascular Problems: Yes High Cholesterol: No Chemotherapy: Yes Chest Pain: No Congestive Heart Failure: No COPD: No Cerebrovascular Accident: Yes (tia ) Diabetes: No Diminished Hearing: No Endocrine: No Gastrointestinal Disorders: Yes Genetic Disorder: No Genitourinary: Yes (had "bladder stretched" when she was younger, herpes) Headaches: Yes (HEMIPLEGIA /MIGRANE) Hepatitis: Yes (HX HEPATITIS FROM ASPIRIN) Hiatal Hernia: No Hypertension: Yes (hx of, not currently on medications for HTN) Immune Disorder: Yes (RA) Implanted Vascular Access Dvce: No Musculoskeletal: Yes (Rheumatoid arthritis) Neurologic: Yes (TIA 2013, paraplegic migraines) Parkinson's Disease: Yes Psychiatric: Yes (depression) Reproductive: No Respiratory: Yes (seasonal asthma) Immunizations Current: Yes Migraines: Yes Radiation Therapy: Yes (RECTAL CANCER) Sleep Apnea: No Thyroid Disease: No ?: Not LMP: DOES NOT GET THEM Menopausal: Yes : 2 Para: 1 Miscarriage: 1 : 0 Ectopic : Yes Ovarian Cysts: Yes Tubal Ligation: Yes Past Surgical History Abdominal Surgery: Yes (colon resection 01/2015, cholecystectomy) AICD: No Cardiac Surgery: No Cholecystectomy: Yes Ear Surgery: No Endocrine Surgery: No Eye Surgery: No Genitourinary Surgery: No Gynecologic Surgery: Yes (cyst removal right ovary, BILATERAL SALPINGECTOMY) Joint Replacement: No Neurologic Surgery: No Oral Surgery: No Pacemaker: No Thoracic Surgery: No Other Surgery: Yes (TUMOR REMOVED LEFT FOOT) Social History Alcohol Use: No Tobacco Use: No Substance Use: No Allergies-Medications (Allergen,Severity, Reaction): Coded Allergies: penicillin G (Unverified Allergy, Severe, ANAPHALXIS, 10/20/17) sulfamethoxazole (Unverified Allergy, Severe, ITCHING, SWELLING LIPS & TONGUE, 10/20/17) trimethoprim (Unverified Allergy, Severe, ITCHING, SWELLING LIPS & TONGUE , 10/20/17) aspirin (Unverified Adverse Reaction, Severe, SILICITIC HEPATITIS, 10/20/17 ) codeine (Unverified Adverse Reaction, Severe, NAUSEA, 10/20/17) metoclopramide (Unverified Adverse Reaction, Severe, LOCKED JAW, 10/20/17) prochlorperazine (Unverified Adverse Reaction, Intermediate, 10/20/17) PT FEELS HEAVY AND HER SKIN IS CRAWLING Reported Meds & Prescriptions Reported Meds & Active Scripts Active Reported Venlafaxine ER 24 HR (Venlafaxine HCl) 75 Mg Cap 75 Mg PO BID Review of Systems Except as stated in HPI: all other systems reviewed are Neg Physical Exam Narrative GENERAL: Well-developed, well nourished, in no acute distress, and non-ill appearing. SKIN: Well healing postsurgical sites left upper extremity. Ex fix in place. Wounds are dry clean and intact. There is afebrile without drainage. No crepitus or other signs of infection. Patient does report mild tenderness around sites. HEAD: Atraumatic. Normocephalic. EYES: Pupils equal and round. EOMI. No scleral icterus. No injection or drainage. ENT: No nasal bleeding or discharge. Mucous membranes pink and moist. NECK: Trachea midline. Supple. No nuclear rigidity. CARDIOVASCULAR: Capillary refill less than 2 seconds. RESPIRATORY: No accessory muscle use. No respiratory distress. MUSCULOSKELETAL: No obvious deformities. No clubbing. No cyanosis. No edema. Decreased range of motion left hand and wrist secondary to external hardware. Patient also reports she is unable to move her fingers on her left hand. NEUROLOGICAL: Awake and alert. No obvious cranial nerve deficits. Motor grossly within normal limits. Normal speech. PSYCHIATRIC: Appropriate mood and affect; insight and judgment normal. Data Data Last Documented VS Vital Signs Date Time Temp Pulse Resp B/P (MAP) Pulse Ox O2 Delivery O2 Flow Rate FiO2 10/20/17 15:23 95 18 127/90 (102) 100 10/20/17 14:25 98.9 Orders Orders Ed Discharge Order (10/20/17 14:48) Wound Care (10/20/17 14:48) MDM Medical Decision Making Medical Screen Exam Complete: Yes Emergency Medical Condition: Yes Differential Diagnosis Wound check, wound infection, wound care Narrative Course Patient in no obvious distress upon re-evaluation. Any questions/concerns in reference to patient diagnosis/condition discussed and clarified prior to patient's discharge. Reinforced sheer importance of close follow up with patient 's orthopedic surgeon as scheduled. Instructed patient to return to ED immediately, if symptoms return/worsen. Patient showed understanding of above instructions. Further instructions and recommendations were detailed in discharge paperwork. Patient ambulated without difficulty out of ED at discharge. Physician Communication Physician Communication [id number] Guerrero's PA Yan recommends performing pin care with 50-50 mixture of peroxide and saline and applying Xeroform dressing the patient can keep on nuntil to follow-up this . However if patient has concerns with bleeding she can then perform her own pin care using 50-50 peroxide and saline and apply Neosporin along with a Band-Aid to keep it covered. Diagnosis Primary Impression: Encounter for postoperative wound check Patient Instructions: General Instructions Additional Instructions: Follow-up with Dr. Guerrero on as scheduled. If you have any issues with bleeding, remove dressing clean around the pins using a mixture of 50% peroxide 50% saline then apply Neosporin and Band-Aid. Otherwise keep dressing that was applied today until reevaluated by Dr. Guerrero. Return to the emergency department if symptoms get worse. Disposition: 01 DISCHARGE HOME Condition: Stable Francisco Juarez Oct 20, 2017 14:42
[2017-10-20 15:23] VITALS: BP 127/90
== END 2017-10-20 15:24 | disposition home or self-care (01) ==
LOC: PHEFT 14:16
DX: Z48.01 Encounter for change or removal of surgical wound dressing (principal); D64.9 Anemia, unspecified; J45.909 Unspecified asthma, uncomplicated; F41.9 Anxiety disorder, unspecified; F32.9 Major depressive disorder, single episode, unspecified; I10 Essential (primary) hypertension; M06.9 Rheumatoid arthritis, unspecified; G20 Parkinson's disease; Z88.0 Allergy status to penicillin; Z88.2 Allergy status to sulfonamides; Z88.6 Allergy status to analgesic agent; Z88.5 Allergy status to narcotic agent; Z88.8 Allergy status to other drugs, medicaments and biological substances; Z86.73 Personal history of transient ischemic attack (TIA), and cerebral infarction without residual deficits; Z79.899 Other long term (current) drug therapy
CPT/HCPCS: 99282